=== PATIENT | male | born 1940 | race Caucasian/White ===

== ENCOUNTER 2016-04-18 10:38 | Inpatient (IN) | payer BC, OTHER ==
--- NOTE | ~2016-04-18 | IDS ---
Interim Discharge Summary [facility] [address] [place]. [address] NAME: ART BURRIS : 42 STATUS : ADM IN PAT#: [id number] AGE: 75 ADM/REG DATE : 04/18/16 MR#: [id number] REPORT SERV DATE: 05/09/16 DICTATED BY: BISI CHAVARRIA IV DATE: 05/09/16 REPORT STATUS : Draft TRANSCRIBED BY: MODUgo DATE: 05/09/16 ADMISSION DATE: 04/18/2016 DISCHARGE DATE: Date of the transfer to the intensive care unit is the 05/04/2016. Date of the interim discharge summary is the 05/09/2016. REASONS FOR TRANSFER: 1. Hypotension, requiring vasopressor agents, though currently maintained on midodrine. 2. Cardiomyopathy with an ejection fraction of 20% to 25%. 3. Critical aortic stenosis, status post balloon angioplasty. 4. Shock liver with some improvement, however, with persistently elevated transaminases. 5. Acute on chronic renal failure with a creatinine currently at 3.33 despite positive fluid balance. Now on a Bumex drip. 6. Clinical chronic obstructive pulmonary disease. 7. Severe obstructive sleep apnea. 8. Paroxysmal atrial fibrillation, with marginal rate control. 9. Chronic hypoxemia. CONSULTANTS: [facility] has continued to follow the patient. We reconsulted Nephrology, who is following the patient. New consults were Gastroenterology Service for the shock liver and Palliative Care. PROCEDURES: The patient had a PICC line placed on the 05/04/2016. A hepatic ultrasound was obtained on the 05/05/2016 demonstrating some gallbladder wall thickening with sludge concerning for cholecystitis, however, with perinephric fluid and without a clinical path pattern consistent with cholecystitis though he remains on cefepime because of a slightly elevated procalcitonin level in these findings. The hepatic vein and portal veins were normal, as was the hepatic parenchyma on ultrasound. Repeat echocardiogram was obtained on the 05/05/2016 demonstrating a decrease in the estimated ejection fraction from 45% to 25% with severe low gradient at the aortic stenosis with a slight improvement in the gradient as well as moderate AI. The patient had a right upper extremity ultrasound because of mild swelling on the 05/06/2016 which failed to demonstrate any DVT. CURRENT MEDICATIONS: Include the Bumex drip at 1 mg/hour, Brovana unit dose twice a day, BuSpar 7.5 mg twice a day, Claritin 10 mg daily, Cordarone 200 mg twice a day, iron 300 mg daily, digoxin 0.25 mg times single dose, Lexapro 5 mg daily, Maxipime 1 g b.i.d., MiraLAX one packet daily, level 1 insulin sliding scale, midodrine 10 mg three times a day, Protonix 40 mg at breakfast, Proventil q.4 hours while awake and q.2 hours as needed, Pulmicort 1 mg twice a day, Spiriva one capsule daily, Synthroid 50 mcg daily, Toprol-XL 12.5 mg daily, and vitamin K 5 mg daily. HOSPITAL COURSE: The patient was on the hospitalist service and transferred to the unit on the 05/04/2016 for reports of hypotension. There had been documented episodes of hypotension and the patient was actually had adequate blood pressure on arrival. He did in the first few days develop some transient episodes of hypotension for which he did receive a Interim Discharge Summary [address] [address] NAME: ART BURRIS : 42 STATUS : ADM IN PAT#: [id number] AGE: 75 ADM/REG DATE : 04/18/16 MR#: [id number] REPORT SERV DATE: 05/09/16 DICTATED BY: BISI CHAVARRIA IV DATE: 05/09/16 REPORT STATUS : Draft TRANSCRIBED BY: VALARIE DATE: 05/09/16 short course of Levophed. His midodrine dose was increased to 2.5 to 10 mg which seems to have maintained his blood pressure. He developed a rapid and a marked rise in his transaminases up to almost 12,000 for his AST. The amiodarone was transiently discontinued because of concern about drug effect, however, this appeared to be from shock liver. The ultrasound failed to demonstrate any abnormal parenchymal or flow problems, however, was suspicious for cholecystitis for which he was placed on antibiotics. His clinical picture was not consistent with this though he has remained on cefepime with discontinuation of vancomycin. All cultures have been negative. He developed acute on chronic renal failure with a creatinine up to 3.33 despite a markedly positive fluid balance. He has developed worsening radiograph with volume overload for which we have instituted a Bumex drip. His echocardiogram demonstrated the worsening of the estimated ejection fraction with persistent and AI. He was transiently in a normal sinus rhythm, however, it again returned into atrial fibrillation with the amiodarone and Toprol as tolerated and digoxin for rate control. The patient was placed on bronchial medications for pulmonary emphysema and presumed severe COPD. He is noncompliant with CPAP for his obstructive sleep apnea. Oxygen saturations have been adequate. Despite all of supported efforts, the patient has had overall clinical worsening. We had Palliative Care evaluate the patient, however, the patient has had difficulty deciding on limitations to his care. Family conference occurred on the 05/09/[address] Valdez, myself, and the patient's two brothers and the decision was made that the patient should be a DO NOT RESUSCITATE. We will see how he responds within the next 24 hours. The patient will likely be stable for transfer back to the floor tomorrow. Hospice would be a consideration. HEAVENLY/VALARIE Bisi Chavarria IV, M.D. / [id number] CC: Carmina Boss DO
--- NOTE | ~2016-04-18 | OP ---
Record Of Operation [facility] [address] [place]. [address] NAME: ART MACIAS : 42 STATUS : DIS IN PAT#: [id number] AGE: 75 ADM/REG DATE : 04/18/16 MR#: [id number] REPORT SERV DATE: 05/18/16 DICTATED BY: GREG BARAHONA DATE: 04/29/16 REPORT STATUS : Draft TRANSCRIBED BY: VALARIE DATE: 04/29/16 DATE OF PROCEDURE: 04/29/2016 OPERATION: Balloon aortic valvuloplasty using 22 mm and 24 mm balloon. INDICATION FOR THE PROCEDURE: Mr. Art Macias is a 75-year-old gentleman with class IV heart failure. His ejection fraction has been about 45%. He has severe COPD, is oxygen dependent. He also has history of coronary artery disease, atrial fibrillation, chronic kidney disease, hyperlipidemia, carotid stenosis, and hypothyroidism. Prior cardiac catheterization demonstrated no obstructive coronary artery disease. His mean gradients across the aortic valve have been 15-20 mmHg by catheterization and by echocardiogram. He was diagnosed with a low gradient severe aortic stenosis. He has remained in class IV heart failure despite aggressive diuresis, the BNP greater than 5000. The plan is to proceed with balloon aortic valvuloplasty to improve the aortic valve area, decrease the gradient and hopefully address his symptoms. The valve team felt if his symptoms improved, we would then consider transcatheter aortic valve replacement. POSTPROCEDURE DIAGNOSIS: Successful balloon aortic valvuloplasty. OPERATORS: 1. Greg Barahoan M.D. 2. Dr. Noe. OPERATIVE TECHNIQUE: The patient was prepped and draped in the usual sterile fashion. He received propofol, MAC anesthesia. He was not intubated. He did not have a right heart catheter, he did not have an A-line. The right and left groins were anesthetized with lidocaine 1% 12 mL. Access to the right femoral artery was easily obtained using a micropuncture technique, angiogram demonstrated access in the common femoral artery. Two ProGlide sutures were placed at the 10 o'clock and 2 o'clock positions. A Cook 12-Polish sheath was placed in the right femoral artery. Access to the left femoral vein was easily obtained, 6-Polish sheath was placed. The pacemaker was placed through that left femoral venous sheath to allow rapid ventricular pacing. He received heparin IV, the activating clotting time was therapeutic. He received 10,000 units of heparin, he weighs 63 kg. We crossed the aortic valve without difficulty using AL1 diagnostic catheter and a straight wire. We then changed out that AL1 for a double lumen, Hector catheter. Simultaneous pressures were obtained between the left ventricle and the ascending aorta. There was a pressure gradient of 5 mmHg or less with this Hector catheter. However, his chest wall echo Record Of [address] [place]. [address] NAME: ART MACIAS : 42 STATUS : DIS IN PAT#: [id number] AGE: 75 ADM/REG DATE : 04/18/16 MR#: [id number] REPORT SERV DATE: 05/18/16 DICTATED BY: GREG BARAHONA DATE: 04/29/16 REPORT STATUS : Draft TRANSCRIBED BY: VALARIE DATE: 04/29/16 demonstrated a velocity of approximately 3 m/sec. We reviewed these findings with Dr. Espinoza who felt we should proceed with balloon aortic valvuloplasty. Given his refractory symptoms, the severe stenosis by 2-dimensional echocardiogram with minimal motion as well as the gradient across the aortic valve by echocardiogram and prior catheterization. In short, the pressure gradient using the Bern catheter were unreliable. We then proceeded with balloon aortic valvuloplasty using a 22 mm Z-Med balloon. With rapid ventricular pacing, we dilated the aortic valve eight times. We performed balloon aortic valvoplasty eight times because the gradient did not improve significantly. I was reluctant to use a large balloon initially to minimize the risk of aortic insufficiency. Each inflation was not captured by because of equipment malfunction. We then performed balloon aortic valvuloplasty using a 24 mm Z-Med balloon. Again with rapid ventricular pacing, we performed balloon aortic valvuloplasty. Subsequent echocardiogram demonstrated velocity had decreased from 3 m/sec to 1.5 m/sec. There was mild aortic insufficiency, unchanged from the images obtained prior to that balloon aortic valvuloplasty. My plan was to proceed with removing the balloon through this Cook sheath and then repeat the pressure gradients. However, the sheath kinked by withdrawing the balloon through the sheath. I thus removed the entire balloon and sheath from the right femoral artery. The ProGlide sutures were tightened. A third ProGlide device was placed. There was no bleeding at all after suturing with the ProGlide devices. The pacemaker was removed. The heart rate was unchanged postprocedure, he has atrial fibrillation ventricular response about 100. I reviewed his echocardiogram images with Dr. Abernathy of Anesthesia, Dr. Noe, and Dr. Espinoza. The gradient improved, the valve motion improved by 2-dimensional echocardiogram and the AI was unchanged of mild. PLAN: The patient will be treated with resumption of his anticoagulants, with aspirin. Diuretics will be continued. We will consider transcatheter aortic valve replacement in the future depending upon his clinical course. ACOSTA/VALARIE Greg Barahona M.D. / [id number] Record Of [address] [address] NAME: ART MACIAS : 42 STATUS : DIS IN PAT#: [id number] AGE: 75 ADM/REG DATE : 04/18/16 MR#: [id number] REPORT SERV DATE: 05/18/16 DICTATED BY: GREG BARAHONA DATE: 04/29/16 REPORT STATUS : Draft TRANSCRIBED BY: VALARIE DATE: 04/29/16 CC: Carmina Boss DO
--- NOTE | ~2016-04-18 | CN ---
Consultation Report [facility] [address] [place]. [address] NAME: ART MACIAS : 42 STATUS : ADM IN [facility]#: [id number] AGE: 75 ADM/REG DATE : 04/18/16 MR#: [id number] REPORT SERV DATE: 05/04/16 DICTATED BY: BISI CHAVARRIA IV DATE: 05/04/16 REPORT STATUS : Draft TRANSCRIBED BY: MODL DATE: 05/04/16 CRITICAL CARE CONSULT AND TRANSFER SERVICES DATE OF CONSULTATION: 05/04/2016 TIME SEEN: 1400 to 1500 hours. REFERRING PHYSICIAN: Dr. Phillips. REASON FOR REQUEST: Reported hypotension, acute kidney injury, and acidemia. HISTORY OF PRESENT ILLNESS: History was obtained from the patient and the records. Mr. Macias is a 75-year-old male with a history of severe obstructive sleep apnea, noncompliant with BiPAP, clinical COPD with emphysema on CT scan, cardiomyopathy, ejection fraction 45%, severe aortic stenosis, status post angioplasty, carotid stenosis, chronic kidney disease, chronic atrial fibrillation, elevated cholesterol, hypotension, chronic hypoxemia, who is transferred to the ICU with reported hypotension and increased shortness of breath. The patient was admitted on the 18 of April with increased shortness of breath, felt to be secondary to both his cardiac disease, as well as a COPD exacerbation. He was treated for the latter with Cardiology continuing to follow the patient. He underwent both echocardiogram and catheterization, which demonstrated critical aortic stenosis. He eventually underwent angioplasty on Tuesday with reported improvement in the gradient across the aortic valve with some improvement in symptoms. Over the weekend, he has had transient episodes of dyspnea, which were documented as being secondary to anxiety. He has significant emphysema on CT scan, though I find no pulmonary function studies. He is on bronchodilator medications and chronic supplemental oxygen. Today, he reportedly had acute onset of shortness of breath not associated with any clear precipitant. Labs also demonstrated some worsening of the renal insufficiency with elevated potassium and a drop in the bicarbonate. The patient was reportedly hypotensive, though this is not recorded on vital signs, for which he was moved to the intensive care unit. Currently, the patient is in no distress. His blood pressure is adequate. He states that his shortness of breath was improved with a nebulizer treatment. The patient reportedly has a very limited exercise tolerance at home of less than 50 feet. He is on 3 L supplemental oxygen 24/7. He was diagnosed with severe obstructive sleep apnea with an AHI greater than 40, which was adequately treated with BiPAP; however, he was previously noncompliant with CPAP therapy. PULMONARY HISTORY: Remarkable for no history of childhood asthma. He does carry the diagnosis of adult COPD with emphysema on CT scan. He has had pneumonia in the past. He is a 21-dfbs-wdpa smoker, who quit by his report, three years ago. 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 He is up-to-date on the flu, though not the Prevnar-13 vaccination. Consultation Report [facility] [address] [place]. [address] NAME: ART MACIAS : 42 STATUS : ADM IN [facility]#: [id number] AGE: 75 ADM/REG DATE : 04/18/16 MR#: [id number] REPORT SERV DATE: 05/04/16 DICTATED BY: BISI CHAVARRIA IV DATE: 05/04/16 REPORT STATUS : Draft TRANSCRIBED BY: VALARIE DATE: 05/04/16 PAST MEDICAL HISTORY: 1. Severe obstructive sleep apnea. 2. Clinical COPD. 3. Cardiomyopathy with ejection fraction 45%. 4. Severe aortic stenosis status post angioplasty. 5. Carotid stenosis. 6. Chronic kidney disease. 7. Chronic atrial fibrillation. 8. Elevated cholesterol. 9. Hypotension. 10.Chronic hypoxemia. SURGERIES: He has had no major previous surgeries listed, however, the patient did have the recent angioplasty. ALLERGIES: LISTED ARE CODEINE AND PENICILLIN, WHICH THE PATIENT REPORTS A RASH. CURRENT MEDICATIONS: BuSpar 7.5 mg twice a day, Claritin 10 mg daily, Dulera two puffs twice a day, DuoNeb every four hours, Eliquis 5 mg twice a day, iron 300 mg daily, Flonase two sprays each nostril daily, Levaquin 750 mg daily, Flagyl 500 mg twice a day, vancomycin per pharmacy, Lexapro 5 mg daily, MiraLAX daily, level 1 insulin sliding scale, ProAmatine 2.5 mg three times a day, Protonix 40 mg daily, Synthroid 50 mcg daily, and Toprol-XL 12.5 mg daily. SOCIAL HISTORY: Remarkable for the previous tobacco use as noted above. The patient denies alcohol or illicit drug use. He is and has two children. FAMILY HISTORY: Remarkable for a sister and mother with coronary artery disease. Father with alcoholic cirrhosis. REVIEW OF SYSTEMS: Fourteen-systems reviewed. Pertinent positives as noted above. PHYSICAL EXAMINATION: GENERAL: This is a chronically ill-appearing elderly male, in no current distress. He is alert, awake, and oriented. VITAL SIGNS: Temperature is 97.3, respiratory rate is 28, saturations are 100% on 3 L. Blood pressure 104/56 and pulse is 73. HEENT: Normocephalic, atraumatic. Extraocular movements are intact. Pupils react to light. Sclerae and conjunctivae normal. He has temporal wasting. He has nasal cannula in place. He has had a Mallampati 3 airway with an elongated soft palate and narrowing of the posterior pharyngeal space. NECK: Without any palpable lymphadenopathy or thyromegaly. CHEST: The patient has inspiratory and expiratory rhonchi with a prolonged expiratory phase. Rhonchi improved with cough. No true wheezes are noted. There are some dry Consultation Report [address] [place]. [address] NAME: ART MACIAS : 42 STATUS : ADM IN [facility]#: [id number] AGE: 75 ADM/REG DATE : 04/18/16 MR#: [id number] REPORT SERV DATE: 05/04/16 DICTATED BY: BISI CHAVARRIA IV DATE: 05/04/16 REPORT STATUS : Draft TRANSCRIBED BY: VALARIE DATE: 05/04/16 inspiratory crackles. CARDIOVASCULAR: He has 1+ carotid upstrokes with a right carotid bruit versus radiated murmur. He currently has a seemingly regular S1 with a decreased S2 and a 3/6 systolic murmur. Peripheral pulses are diminished. ABDOMEN: Scaphoid, soft. There are hypoactive bowel sounds. There is no palpable hepatosplenomegaly or mass. EXTREMITIES: Demonstrate no cyanosis, clubbing, edema, or palpable cords. He has muscle wasting. NEUROLOGIC: He is able to move all extremities. Strength is 5-/5 and symmetric and sensation is intact to light touch. LABORATORY STUDIES: Chest x-ray yesterday demonstrated cardiomegaly with no pulmonary infiltrates. CBC: Hemoglobin 13.1, hematocrit 40.9, platelet count 122,000, and white blood cell count is 14.9. Sodium is 135, potassium 5.9, chloride 97, bicarbonate 17, BUN 52, creatinine 1.66, glucose of 97. ALT is 315, AST is 646. Negative liver panel and hepatitis panel. Blood gas 7.46, pCO2 of 29, pO2 of 96. Urinalysis is remarkable for 32 hyaline casts. ASSESSMENT AND PLAN: 1. Respiratory. The patient has significant emphysematous changes on the CT scan during this hospitalization. There are no pulmonary function studies. He will be given albuterol via EzPAP, budesonide, and Brovana. Budesonide will be given 1 mg twice a day with Brovana unit dose twice a day. Spiriva will be given one capsule daily. Acapella valve will be given three times a day to assist with mucus clearance. Oxygen will be titrated to maintain saturation 90% to 94% range. Blood gas obtained now to document, which was performed to look at the patient's pH. 2. Renal. The patient does have evidence for acute kidney injury. Question cholesterol emboli from his procedure. We will avoid nephrotoxins. Gentle hydration. Kayexalate will be given 15 g now, D50 and insulin were already given. Repeat labs will be done at 1800 hours tomorrow. 3. Infectious Disease. Procalcitonin level will be obtained. Cultures have not yet been sent. I have discontinued broad-spectrum antibiotics since there is no clear evidence for a true infectious process. Prevnar-13 will be given at the time of discharge. 4. Cardiovascular. The patient's rate is controlled. He is currently in a regular rhythm, which does appear to be sinus. Digoxin level will be obtained tomorrow. We will continue the beta-jma as tolerated. He will remain on the midodrine for the chronic hypotension. 5. Endocrinologic. Cortisol level will be obtained with hypertension. Synthroid will be continued with high thyroid stimulating hormone. 6. Hematologic. Eliquis will be continued. We will follow the patient's hemoglobin and hematocrit. 7. Neurologic. We will continue the patient's Psych medications. 8. Gastrointestinal, not clear the reason for the elevated liver function tests, though may be shock liver from his procedure. We will repeat tomorrow. Consultation Report [facility] [address] [place]. [address] NAME: ART MACIAS : 42 STATUS : ADM IN PAT#: [id number] AGE: 75 ADM/REG DATE : 04/18/16 MR#: [id number] REPORT SERV DATE: 05/04/16 DICTATED BY: BISI CHAVARRIA IV DATE: 05/04/16 REPORT STATUS : Draft TRANSCRIBED BY: VALARIE DATE: 05/04/16 Thank you for consulting us. We will follow the patient and the patient will be transitioned to the sound assistant service. Critical care time is 60 minutes. HEAVENLY/VALARIE Bisi Chavarria IV, M.D. / [id number] CC: Carmina Boss,
--- NOTE | ~2016-04-18 | HP ---
History And Physical [id number] [place]. [address] NAME: ART BURRIS : 42 STATUS : ADM IN [facility]#: [id number] AGE: 75 ADM/REG DATE : 04/18/16 MR#: [id number] REPORT SERV DATE: 04/18/16 DICTATED BY: ISAÍAS PAYTON DATE: 04/18/16 REPORT STATUS : Draft TRANSCRIBED BY: MODL DATE: 04/18/16 DATE OF ADMISSION: 04/18/2016 CHIEF COMPLAINT: Shortness of breath. HISTORY OF PRESENT ILLNESS: The patient is a 75-year-old male with a history of coronary artery disease, heart failure with reduced EF, AFib, and GERD, who presented to the hospital with a complaint of shortness of breath. The patient states that over the past one to two weeks, he had been feeling unwell. He states that he has seen his forensic manager recently and was instructed to get some lab work done. However, he kept pushing it trying to stating that he was planning to get it done this coming 04/19/2016. The patient states that last night his shortness of breath severely worsened, states that he was unable to lie in bed and had to sleep in a chair. Upon awakening this morning given his worsening symptoms, he decided to present to the emergency room. Upon presentation to the emergency room, preliminary workup noted a BNP of greater than 3000. The patient was therefore admitted under Hospitalist Service for further management. At the time of my evaluation, the patient corroborated the above story. Also additional history obtained from the nurse and ED physician. Upon presentation to the emergency, the patient had a normal heart rate as noted in the EKG when the patient first got it. However given his volume overload, the patient was given a dose of Lasix and upon him sitting up to eat high he will use he went into atrial fibrillation with RVR. The patient remained in the emergency room and was monitored with subsequent improvement. Also his blood pressure was noted to drop. The patient is currently normotensive with a blood pressure of 94 over low 60s at the time of my evaluation. The patient said he did have a chest pain accompanying his symptoms; however, at the time of my evaluation, he denied any chest pain. He denied any lightheadedness or dizziness. No nausea. No vomiting. He then reported recent sick contact stating that his brother has been under the weather. However, no headaches, no lightheadedness, no dizziness, and no syncopal episodes. REVIEW OF SYSTEMS: As noted in the HPI. All other systems were negative. PAST MEDICAL HISTORY: As noted in the HPI including heart failure with reduced EF, atrial fibrillation, chronic kidney disease stage 3, gastroesophageal reflux disease, hyperlipidemia, and COPD. PAST SURGICAL HISTORY: Negative. FAMILY HISTORY: Significant for coronary artery disease. ALLERGIES: THE PATIENT IS ALLERGIC TO PENICILLIN AND CODEINE. SOCIAL HISTORY: The patient reports significant smoking history. He states that he quit about three years ago. He denies any illicit or alcohol drug use. PHYSICAL EXAMINATION: History And Physical [address] [address] NAME: ART BURRIS : 42 STATUS : ADM IN [facility]#: [id number] AGE: 75 ADM/REG DATE : 04/18/16 MR#: [id number] REPORT SERV DATE: 04/18/16 DICTATED BY: ISAÍAS PAYTON DATE: 04/18/16 REPORT STATUS : Draft TRANSCRIBED BY: VALARIE DATE: 04/18/16 GENERAL: The patient is sitting in bed, appears stated age, dry oral mucosa, in no acute distress, wearing a nasal cannula. HEENT: Normocephalic, atraumatic. Extraocular motors intact. Oral mucosa is dry. NECK: Trachea midline and symmetric. No thyromegaly noted. CHEST: Nontender to palpation. CARDIOVASCULAR: Irregularly irregular rate and rhythm. I did not appreciate any murmurs. LUNGS: Decreased breath sounds globally with positive rales. ABDOMEN: Positive bowel sounds. Flat, soft, nontender, and nondistended. EXTREMITIES: 2+ pitting edema noted. NEUROLOGIC: Alert and oriented x3. No focal deficits appreciated. LABORATORY DATA: WBC 5.2, hemoglobin 12.5, hematocrit 39.4, platelets 184. Sodium 138, potassium is 4.6, chloride 104, bicarb 24, BUN 29, creatinine 1.35, and glucose 115. BNP 3100. IMAGING: Chest radiograph PA and lateral, impression: Continued small bilateral pleural effusions with mild bibasilar atelectasis. ASSESSMENT AND PLAN: 1. Congestive heart failure with reduced ejection fraction, decompensated. The patient with evidence of volume overload. I Will start Lasix 40 mg IV q.8 hours. I will hold Coreg and other antihypertensive secondary to low blood pressure. Consult Cardiology given his decompensated heart failure in the setting of atrial fibrillation with rapid ventricular response. 2. Atrial fibrillation with rapid ventricular response, persistent, currently on anticoagulation and rate controlling agents. I will continue home medications. Consult Cardiology. 3. Coronary artery disease. The patient with an ASCVD score of 14.7, high intensity statin indicated. We will discontinue pravastatin, start atorvastatin 40 mg p.o. daily. 4. Acute kidney injury. Creatinine currently 1.35, baseline is 1.02 to 1.1. Plan: We will avoid nephrotoxins. We will hold IV fluids given the patient's hypervolemic status. We will continue to monitor at this point. 5. Chronic kidney disease, stage 3. The patient will remain full code. 6. Deep venous thrombosis prophylaxis with subcu heparin. CAITLIN/MODL Isaías Payton MD / [id number] CC: Isaías Payton MD
--- NOTE | ~2016-04-18 | IDS ---
Interim Discharge Summary [facility] [address] [place]. [address] NAME: ART BURRIS : 42 STATUS : ADM IN [facility]#: [id number] AGE: 75 ADM/REG DATE : 04/18/16 MR#: [id number] REPORT SERV DATE: 05/03/16 DICTATED BY: CHERIE GOODWIN DATE: 05/03/16 REPORT STATUS : Draft TRANSCRIBED BY: VALARIE DATE: 05/03/16 ADMISSION DATE: 04/18/2016 DISCHARGE DATE: DIAGNOSES: 1. Systolic/ischemic cardiomyopathy exacerbation. 2. Severe aortic stenoses, status post balloon aortic valvuloplasty by Dr. Khoa Barahona, 04/29/2016. 3. Hypotension. 4. Chronic obstructive pulmonary disease exacerbation, resolved. 5. Atrial fibrillation with rapid ventricular response. 6. Hypothyroidism. CONSULTANTS: 1. Cardiology with [facility], Dr. Khoa Barahona and Dr. Espinoza. 2. Hospitalist, Dr. Gay and Dr. Francesca Phillips. HOSPITAL COURSE: Please see H and P by Dr. Gay and interim summary from Dr. Rosana Phillips for further details. A 75 years old male with a past medical history of systolic congestive heart failure and atrial fibrillation presented with shortness of breath, found to be in congestive heart failure exacerbation as well as COPD exacerbation. The patient was seen by Cardiology Service. The patient had an echocardiogram that revealed ejection fraction around 45% and severe aortic stenoses. The patient is now status post cardiac cath. Please refer to interim summary per Dr. Francesca Phillips for further instructions. The patient was taken off Entresto for worsening renal function by Nephrology. The patient was taken into the labor trainer for balloon aortic valvuloplasty, for which the patient tolerated well. He was initiated on midodrine by Dr. Espinoza solid waste landfill technician, for persistent hypotension secondary to cardiovascular disease most likely. The patient required continued encouragement for participation with Physical Therapy for debility. His respiratory status improved during this hospital course and plan is for discharge soon. The patient had a complaint today of a brownish-productive cough. Therefore, a chest x-ray is to be ordered and the patient will empirically be on doxycycline. We will follow up with chest x-ray. Expect discharge soon. The patient will be staying with his brother in [place], at discharge. However, Case Management has not been able to find a home health for that location due to the [place] being a [place]. The patient is made aware of this, but still recommends to be with someone at discharge. He is already set up for cardiac rehab outpatient. The patient be followed by Dr. Francesca Phillips once again, who will attend to this patient's care, 05/04/2016. [facility]/VALARIE Cherie Payne Interim Discharge Summary [address] [address] NAME: ART BURRIS : 42 STATUS : ADM IN [facility]#: [id number] AGE: 75 ADM/REG DATE : 04/18/16 MR#: [id number] REPORT SERV DATE: 05/03/16 DICTATED BY: CHERIE GOODWIN DATE: 05/03/16 REPORT STATUS : Draft TRANSCRIBED BY: VALARIE DATE: 05/03/16 Carmina Goodwin / [id number] CC: Carmina Boss DO
--- NOTE | ~2016-04-18 | CN ---
Consultation Report [facility] [address] [facility] [place]. [address] NAME: ART MACIAS : 42 STATUS : ADM IN PAT#: [id number] AGE: 75 ADM/REG DATE : 04/18/16 MR#: [id number] REPORT SERV DATE: 04/21/16 DICTATED BY: DATE: REPORT STATUS : Draft TRANSCRIBED BY: MODUgo DATE: 04/21/16 CONSULTATION REPORT DATE OF CONSULTATION: REASON FOR CONSULTATION: CKD. HISTORY OF PRESENT ILLNESS: Mr. Macias is a 75-year-old white male with multiple medical problems including CHF, looks as though he has a baseline CKD with creatinine of 1.3. He has COPD, oxygen dependent. He is in the hospital at this time with shortness of breath, had AFib with RVR, acute exacerbation of congestive heart failure. Since being in the hospital, he has been diuresed. His creatinine has gone from 1.3 to 1.6, and we have been asked to see him in consultation. He has a Ramos in place. Along with diuresis, he has also had low blood pressures in the 80s and his Entresto has been held every day. He has an aortic valve area of 0.6 cm2 and EF of 45%. His shortness of breath at this time is much improved. Denies any dysuria or hematuria prior to presentation. No fevers or chills. He does have occasional chest pain. PAST MEDICAL HISTORY: CHF; CKD; atrial fibrillation; reflux; osteoarthritis; BPH; hyperlipidemia; COPD, oxygen dependent; and carotid stenosis, followed by Dr. Lawrence. ALLERGIES: PENICILLIN AND CODEINE. FAMILY MEDICAL HISTORY: No end-stage renal disease. SOCIAL HISTORY: He lives with his brother. No tobacco, quit three years ago. No alcohol or illicit drug use. MEDICATIONS: At the time of consultation, Eliquis, Lipitor, Bumex was stopped earlier today, BuSpar, Coreg, Lanoxin, Lexapro, Pepcid was stopped earlier today, Flonase, Humibid, NovoLog, Levaquin, Synthroid, Claritin, Solu-Medrol, Protonix, and potassium. Entresto is listed, however, he has not had a dose since he has been here. REVIEW OF SYSTEMS: A 12-point review of systems was obtained and negative with the exception of that in the HPI. PHYSICAL EXAMINATION: VITAL SIGNS: Temp 97.3, blood pressure 119/67, pulse 111, respiratory rate 20, and O2 saturation is 100%. GENERAL: This is a chronically ill-appearing white male, thin, alert and oriented x3, in no acute distress, answers questions appropriately. HEENT: Normocephalic and atraumatic. Conjunctivae are clear. Sclerae are anicteric. Oral mucosa is moist. Consultation Report [address] [place]. [address] NAME: ART MACIAS : 42 STATUS : ADM IN PAT#: [id number] AGE: 75 ADM/REG DATE : 04/18/16 MR#: [id number] REPORT SERV DATE: 04/21/16 DICTATED BY: DATE: REPORT STATUS : Draft TRANSCRIBED BY: VALARIE DATE: 04/21/16 NECK: Supple. He does have a right carotid bruit. LUNGS: Respirations are even and unlabored. Breath sounds are clear to auscultation. HEART: Rate is regular. He does have a 4/6 systolic ejection murmur. No rub or gallop. ABDOMEN: Soft and nontender. Bowel sounds are active. No masses. No hepatosplenomegaly. No bruits. No CVA tenderness. BACK: Within normal limits. EXTREMITIES: To the right lower extremity, he has 2+ edema. To the left, he has trace. Ramos intact with concentrated urine. NEUROLOGIC: No focal deficits. Mood and affect, pleasant and appropriate. SKIN: Warm, dry, and intact. No unusual rashes or skin lesions. PERTINENT LABS AND X-RAYS: Chest x-ray today was negative. BNP is still greater than 5000. Sodium 140, potassium 5, chloride 104, CO2 of 24, BUN 49, creatinine 1.6, calcium 8.8, and magnesium 2.4. WBCs 9.6, H and H 11 and 36, and platelets 132,000. IMPRESSION: 1. Chronic kidney disease, stage III. 2. Hypotension. 3. Aortic stenosis. 4. Acute exacerbation of congestive heart failure. 5. Atrial fibrillation. 6. Chronic obstructive pulmonary disease. PLAN/RECOMMENDATIONS: Creatinine is up in the setting of diuresis, which was needed. He has also had low blood pressure. Shortness of breath is symptomatically much better. There are plans for possible heart catheterization tomorrow and discuss with the patient the risk for contrast-induced nephropathy. He has already had his Entresto held. Diuretic is also on hold today. I do not think he would tolerate any IV fluid hydration prior to catheterization, so we will not order such. Follow I's and O's, labs, check urine studies and follow along with you. Thank you for the consultation. SIMON/VALARIE ROCKY Paez / [id number] CC: Carmina Arceo,
--- NOTE | ~2016-04-18 | IDS ---
Interim Discharge Summary [facility] [address] [facility] [place]. [address] NAME: ART MACIAS : 42 STATUS : ADM IN [facility]#: [id number] AGE: 75 ADM/REG DATE : 04/18/16 MR#: [id number] REPORT SERV DATE: 04/26/16 DICTATED BY: FRANCESCA AREVALO DATE: 04/25/16 REPORT STATUS : Draft TRANSCRIBED BY: MODL DATE: 04/25/16 ADMISSION DATE: 04/18/2016 DISCHARGE DATE: CURRENT INTERIM DISCHARGE SUMMARY: Includes: 1. Acute on chronic congestive heart failure with history of nonischemic cardiomyopathy with an ejection fraction around 45% with global hypokinesis. 2. Severe aortic stenosis with recent cardiac catheterization showing an aortic valve area of 0.81. 3. Chronic obstructive pulmonary disease exacerbation with history of an oxygen-dependent chronic obstructive pulmonary disease and chronic respiratory failure. 4. Acute on chronic kidney disease, stable. 5. Atrial fibrillation with rapid ventricular response, on anticoagulation. 6. Gastroesophageal reflux disease. 7. Hypothyroidism. 8. Hyperlipidemia. CONSULTANTS ON THE CASE: Dr. Espinoza, Cardiology, as well as Dr. Harris, Renal. PROCEDURES DONE DURING THIS HOSPITALIZATION: Include a cardiac catheterization that has been performed by Cardiology on 04/22/2016 showing that the patient does have nonischemic cardiomyopathy with an ejection fraction around 45%, but also very severe aortic stenosis with a valve area of 0.81. OTHER TESTS DONE DURING THIS HOSPITALIZATION: Include a 2D echo on 04/19/2016 showing an ejection fraction of about 45%. CT of the chest without contrast has shown mild interstitial edema and pleural effusion, mild COPD, atelectasis of the lung bases, but no other abnormalities that could be appreciated. Also, the patient has been ruled out for SC. The patient also has a TSH of 10.9, also creatinine of 1.34 with a BUN of 39. His BNP though remained more than 5000. His blood cultures have remained negative at four days. HOSPITAL COURSE: This is a very pleasant 75 years old gentleman, who has been admitted by Dr. Franklin Gay on 04/18/2016 with shortness of breath. It is very important to note that the patient has a history of aortic stenosis, coronary artery disease. Until recently, he has been seen by Dr. Segovia. He has a history of COPD with chronic respiratory failure as well as history of aortic stenosis. Again, the patient has been admitted with acute on chronic congestive heart failure likely initially secondary to atrial fibrillation that has been uncontrolled and mild COPD exacerbation. The patient has been seen in consult due to his dyspnea, volume overload, and CHF by Dr. Espinoza. Initially, echo showed that the patient has an ejection fraction of around 45% and severe aortic stenosis. After that, the patient has been scheduled for cardiac catheterization, which showed that he does have a pulmonary pressure of 54/38 with severe aortic stenosis with 0.81 aortic valve area and likely heart failure status will be assessed like [place] [employer] class III. The patient has been seen in consult by Nephrology due to the fact that he developed some acute on chronic kidney disease with raising of his creatinine especially after placed on Entresto that the patient did not tolerate secondary to his renal failure and development of Interim Discharge Summary [address] [place]. [address] NAME: ART MACIAS : 44 STATUS : ADM IN [facility]#: [id number] AGE: 75 ADM/REG DATE : 04/18/16 MR#: [id number] REPORT SERV DATE: 04/26/16 DICTATED BY: FRANCESCA AREVALO DATE: 04/25/16 REPORT STATUS : Draft TRANSCRIBED BY: VALARIE DATE: 04/25/16 hyperkalemia. The patient has been started on steroids on admission that have been tapered and changed to oral steroids and currently, the patient still has some congestive heart failure, for which Cardiology is treating him with IV diuretics. Obviously, there is a consideration for this patient to TAVR, but the plan initially was to optimize his medications. MEDICATIONS: Currently, medications at interim discharge summary include Eliquis, Lipitor, Bumex, BuSpar, Coreg, Lanoxin, Lexapro, iron sulfate, Flonase, NovoLog sliding scale, Synthroid, Claritin, Protonix, MiraLAX, and prednisone, as well as Proventil, DuoNebs, and Dulera. My partner is going to start to see Mr. Art Macias from 04/27/2016. CF/MODL Francesca Arevalo M.D. / [id number] CC: Carmina Arceo DO
--- NOTE | ~2016-04-18 | CN ---
Consultation Report [facility] [address] [place]. [address] NAME: ART MACIAS : 44 STATUS : ADM IN [facility]#: [id number] AGE: 75 ADM/REG DATE : 04/18/16 MR#: [id number] REPORT SERV DATE: 04/19/16 DICTATED BY: TETO KAISER DATE: 04/19/16 REPORT STATUS : Draft TRANSCRIBED BY: MODL DATE: 04/19/16 CARDIOLOGY CONSULTATION DATE OF CONSULTATION: [facility] PHYSICIAN: Teto Kaiser M.D., Ph.D, F.A.C.C. CHIEF COMPLAINT: Shortness of breath. HISTORY OF PRESENT ILLNESS: Mr. Macias is a 75-year-old man with a history of aortic stenosis and chronic coronary artery disease, who was previously followed by Dr. Segovia until just recently. The patient has a history of mixed cardiomyopathy and COPD. I had initially seen him for evaluation of aortic stenosis, which was felt to be moderate. He presents to the hospital with progressive dyspnea on exertion, also orthopnea. He has some increased lower extremity edema. He reports being careful about his salt intake, but has not cared for all about his water or fluid intake. He reports taking all of his medications, although he is a little unclear about exactly which medicines those are. He has had no palpitations or syncope. He has had no discrete chest pain or anginal type symptoms. REVIEW OF SYSTEMS: As per the history of present illness. 10 other systems are negative. No fevers or chills. Cough productive of minimal sputum. FAMILY HISTORY: Positive for heart disease. SOCIAL HISTORY: No current tobacco. ALLERGIES: PENICILLIN AND CODEINE. HOME MEDICATIONS: Albuterol, Xanax 0.25 daily, Eliquis 5 p.o. b.i.d., Bumex 1 daily, BuSpar, carvedilol 3.125 mg p.o. b.i.d., Zyrtec 10 daily, cimetidine 400 b.i.d., digoxin 0.125 daily, Lexapro, Nexium, ferrous sulfate, Afrin nasal spray, potassium 10 daily, pravastatin 10 daily, Entresto 1 tab p.o. b.i.d. PHYSICAL EXAMINATION: VITAL SIGNS: Heart rate 81, blood pressure 88/53. GENERAL: This is a pleasant white male, in no apparent distress. HEENT: Conjunctivae are anicteric, no xanthelasma, lips without cyanosis. NECK: Supple, normal JVP, carotids +2 without bruit. LUNGS: Clear to auscultation bilaterally, no wheezes, rales or rhonchi. CARDIOVASCULAR: Regular rate and rhythm. Normal S1 and S2 without S3. No murmur or rub. PMI is nondisplaced. ABDOMEN: Soft, nontender, nondistended, with normal bowel sounds. No hepatomegaly. Consultation Report [facility] [address] [facility] [place]. [address] NAME: ART MACIAS : 44 STATUS : ADM IN [facility]#: [id number] AGE: 75 ADM/REG DATE : 04/18/16 MR#: [id number] REPORT SERV DATE: 04/19/16 DICTATED BY: TETO KAISER DATE: 04/19/16 REPORT STATUS : Draft TRANSCRIBED BY: MODL DATE: 04/19/16 EXTREMITIES: No clubbing, cyanosis or edema. NEURO/PSYCH: Alert and oriented to person, place and time. No obvious neurologic deficits. Mood and affect normal. IMPRESSION: 1. Paroxysmal atrial fibrillation, previous with rapid ventricular response, now converted to sinus rhythm. 2. [id number]-[id number] systolic congestive heart failure secondary to atrial fibrillation. 3. Chronic obstructive pulmonary disease. 4. Coronary artery disease with cardiomyopathy. 5. Moderate aortic stenosis. 6. Possible hypothyroidism with increased TSH. RECOMMENDATIONS: Mr. Macias presents with dyspnea and volume overload. He had transient atrial fibrillation in the emergency room, I think which is complicating factor for him. His blood pressure also is on the low side, but I think it chronically runs on the low side. All of this is complicated by underlying lung disease. I agree with diuresis and optimizing his medicines. I think we should check an echo. We may need to consider doing an arteriogram. I am concerned about the previous reports of focal wall motion abnormalities on his echocardiogram, although he has had no anginal type symptoms. His BNP is markedly elevated. We will see if we can get him better and get a better evaluation of where we are down the road. He needs aggressive heart failure education as well. Thank you for this consultation. Please contact me if you have any further questions. WO/MODL Teto Kaiser M.D., Ph.D, F.A.C.C. / [id number] CC: MD Naveed Sanabria DO
--- NOTE | ~2016-04-18 | DS ---
Discharge Summary [facility] [address] [place]. [address] NAME: ART BURRIS : 42 STATUS : ADM IN PAT#: [id number] AGE: 75 ADM/REG DATE : 04/18/16 MR#: [id number] REPORT SERV DATE: 05/17/16 DICTATED BY: KATLYN PEREZ DATE: 05/16/16 REPORT STATUS : Draft TRANSCRIBED BY: MODL DATE: 05/16/16 ADMISSION DATE: 04/18/2016 DISCHARGE DATE: 05/16/2016 PRINCIPAL DIAGNOSES: End-stage systolic congestive heart failure with cardiogenic shock in the setting of severe mitral regurgitation and critical aortic stenosis. SECONDARY DIAGNOSES: Acute kidney injury with oliguria, shock liver, disseminated intravascular coagulation, acute respiratory failure, hyperkalemia, hypoglycemia due to homeostatic failure, critical illness polyneuropathy, critical illness myopathy, shock liver, atrial fibrillation. HISTORY OF PRESENT ILLNESS: Please see Dr. Gay's dictation on 04/18/2016, subsequent interim summaries from 04/26/2016 and 05/03/2016, and from the Critical Care Team on 05/10/2016. SUBSEQUENT HOSPITAL COURSE: The patient actually had been modestly improving with liver function enzymes coming down, a creatinine coming down with improving urinary output on diuretic infusion, oxygenation had been improving and coags have been improving as well. He is participating in physical therapy, eating a little bit; however, p.o. intake by 05/13/2016 began to Peter out again very severely. He ate nothing on 05/12/2016 and was found once again to be encephalopathic. Efforts were made to try to feed him ourselves, he would not eat, with the following morning renal failure had recurred severely along with hyperkalemia and severe hypoglycemia. The patient required bicarbonate and dextrose infusion as well as Kayexalate to be given through NG tube which he did not otherwise tolerate. While the patient survived that particular critical moment, his absence of ability to maintain a forward progress in the setting of his cardiac disease and a recurrence of severe renal failure and homeostatic failure made further efforts absolutely futile. The patient at the family's request stayed in the hospital. His was anticipated on the evening of 05/16/2016, while we will continue to see him if he continues on; however, at the time of this dictation he was only having agonal breathing and was expected very soon. Nurse pronouncement permission was given. VICKIE/VALARIE Katlyn Perez M.D. / [id number] CC: Carmina Iraheta DO
--- NOTE | ~2016-04-18 | CN ---
Consultation Report [facility] [address] [place]. [address] NAME: ART MACIAS : 42 STATUS : ADM IN PAT#: [id number] AGE: 75 ADM/REG DATE : 04/18/16 MR#: [id number] REPORT SERV DATE: 05/05/16 DICTATED BY: SABRINA HOLLOWAY DATE: 05/05/16 REPORT STATUS : Draft TRANSCRIBED BY: VALARIE DATE: 05/05/16 GI CONSULTATION DATE OF CONSULTATION: REASON FOR CONSULTATION: Elevated LFTs. HISTORY OF PRESENT ILLNESS: Mr. Macias is a 75-year-old male patient, who was initially admitted on 04/18 secondary to a chief complaint of shortness of breath. He has a history of coronary artery disease, ischemic cardiomyopathy with heart failure and reduced ejection fraction, atrial fibrillation, GERD. He came in with shortness of breath. BNP was greater than 3000. He was evaluated by Dr. Espinoza and ultimately on 04/30, underwent balloon aortic valvuloplasty with Dr. Barahona. Since that time, he has had issues with hypotension, increased shortness of breath and was transferred to the ICU secondary to the above reason. He had some anxiety issues, and his initial dyspnea over the weekend had been felt secondary to that. His LFTs were checked over the weekend and were significantly elevated from his normal admission. Liver enzymes, he had, his highest, an AST yesterday of 11,851 and ALT was 3517. Today, his ALT is 3575 with an AST of 8769 and a procalcitonin level was 0.63, a total bilirubin of 2, and an alkaline phosphatase of 106. He had a hepatic echo done with normal blood flow. The liver measured 15.8 cm, hepatic echogenicity and was homogeneous and without focal mass or defect. No intra or extrahepatic biliary ductal dilation. Common bile duct was 6 mm. The gallbladder was distended with fluid and containing echogenic sludge, it was also thickened, the gallbladder wall at 6 mm, not had a positive Brown sign. He had a trace amount of perihepatic free fluid, small right pleural effusion. The hepatic veins and portal vein were widely patent with hepatopetal flow in the portal vein. I have discussed the case with Dr. Bhanu Lang of Hepatology. His recommendations are to check a PT/INR and CPK, trend his LFTs, keep his MAP greater than 65, as well as discontinue any offending medications, i.e., statins. Amiodarone per Dr. Chavarria has been discontinued. 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 PAST MEDICAL HISTORY: He has a notable past medical history. Positive for severe obstructive sleep apnea with noncompliance on BiPAP; COPD with emphysema; cardiomyopathy, ejection fraction 45%; severe aortic stenosis, status post balloon angioplasty; carotid stenosis; chronic kidney disease; chronic atrial fibrillation; elevated cholesterol; hypertension; chronic hypoxemia; GERD; hyperlipidemia; COPD. PAST SURGICAL HISTORY: Negative. FAMILY HISTORY: Negative from a GI standpoint. SOCIAL HISTORY: Positive for tobacco, cessation three years ago. Denies alcohol or illicits. Consultation Report [address] [place]. [address] NAME: ART MACIAS : 42 STATUS : ADM IN [facility]#: [id number] AGE: 75 ADM/REG DATE : 04/18/16 MR#: [id number] REPORT SERV DATE: 05/05/16 DICTATED BY: SABRINA HOLLOWAY DATE: 05/05/16 REPORT STATUS : Draft TRANSCRIBED BY: VALARIE DATE: 05/05/16 ALLERGIES: TO PENICILLIN AND CODEINE. HOME MEDICATIONS: ProAir HFA, Proventil, Xanax, Eliquis, Bumex, BuSpar, Coreg, Zyrtec, cimetidine, Digitek, Lexapro, Nexium, ferrous sulfate, Flonase, Afrin, potassium, Pravachol, Entresto, [place] nasal spray, and mucus medication [id number]. REVIEW OF SYSTEMS: A 10-point review of systems obtained with pertinent positives addressed in the history of present illness. PERTINENT LABORATORY DATA: Sodium 136, potassium 4.5, BUN is 76. Creatinine 2.76. White count 13.1, hemoglobin 11.3, hematocrit is 34.4, platelet count of 98. INR of 1.2. BNP presently 969. Total bilirubin 2, alkaline phosphatase 106, ALT 3575, AST 8769. PHYSICAL EXAMINATION: VITAL SIGNS: Temperature 97.5, pulse 75, respirations 21, blood pressure 93/58. It should be noted that his lowest blood pressure by vital sign trend was 71/40 on 05/04. NEURO: Reveals an alert male, resting in bed with no obvious focal deficits. GENERAL: He is cooperative, in no apparent distress. Awake, alert, and oriented x3. HEAD, EARS, EYES, NOSE, AND THROAT: Anicteric. Pupils equal, round, reactive to light and accommodation. Normocephalic and atraumatic. SKIN: Notable for mild jaundice. NECK: No JVD. No palpable nodes. LUNGS: Coarse and diminished with normal respiratory effort exhibited. CARDIOVASCULAR SYSTEM: Irregular rate and rhythm. ABDOMEN: Soft, nondistended, nontender with active bowel sounds. No organomegaly appreciated. Right and left groin with dressings and bruising. ASSESSMENT: 1. Elevated LFTs. This is likely secondary to shock liver or medication related. 2. Ischemic cardiomyopathy with ejection fraction of 45%. 3. Severe aortic stenosis, status post balloon aortic valvuloplasty. 4. Chronic obstructive pulmonary disease exacerbation. 5. Atrial fibrillation with rapid ventricular response, resolved. 6. Questionable cholecystitis on ultrasound. PLAN: 1. Check PT/INR and a CPK to rule out rhabdomyolysis. 2. Keep his MAP greater than 65. 3. No H2 inhibitors. 4. Amiodarone has been discontinued, which could be a culprit. 5. Discontinue any statin drugs if on them. 6. We will trend his LFTs. This was all discussed with Dr. Bhanu Lang. We will follow. Consultation Report [address] [address] NAME: ART MACIAS : 42 STATUS : ADM IN [facility]#: [id number] AGE: 75 ADM/REG DATE : 04/18/16 MR#: [id number] REPORT SERV DATE: 05/05/16 DICTATED BY: SABRINA HOLLOWAY DATE: 05/05/16 REPORT STATUS : Draft TRANSCRIBED BY: MODUgo DATE: 05/05/16 ROSAMARIA/VALARIE ROCKY Mcmahon / [id number] CC: Carmina Boss DO
--- NOTE | ~2016-04-18 | CN ---
Consultation Report [facility] [address] [place]. [address] NAME: ART BURRIS : 42 STATUS : ADM IN PAT#: [id number] AGE: 75 ADM/REG DATE : 04/18/16 MR#: [id number] REPORT SERV DATE: 05/05/16 DICTATED BY: VINAY SCHWARZ DATE: 05/05/16 REPORT STATUS : Draft TRANSCRIBED BY: MODL DATE: 05/05/16 NEPHROLOGY CONSULT DATE OF CONSULTATION: HISTORY OF PRESENT ILLNESS: Mr. Burris is a 75-year-old white male, who was admitted to the hospital with baseline creatinine 1.3 to 1.5. We were consulted initially on 04/21/2016 for pre-cath evaluation as he was needing a cardiac catheterization. Did well with catheterization. We signed off from 04/24 with a creatinine down to 1.2. He had stopped his Entresto. I had stopped his diuretics at that point, but with his cardiac cath revealing severe aortic stenosis, it was decided that he needed balloon aortic valvuloplasty, which was performed on 04/29. Following the procedure, they did diurese him aggressively. His creatinine went from 1.2 to 1.4 over the next two days. Subsequently on 05/03/2016, he was noted to be in atrial fib, rapid ventricular response, and worsening heart failure. Creatinine then was 1.1. Treated with Bumex IV, Vibramycin, was treated for bronchitis he developed, and the next day, his creatinine was 2, went up to 2.2 that afternoon, and 2.5 today. Blood pressure has been low on ProAmatine. Consulted again today for elevated creatinine, after episode of atrial fib, rapid ventricular response on 05/03 that led to hypotension, and I cannot find any nephrotoxic agents given no severe prolonged hypotension. No new medications except Vibramycin, which was given because of the bronchitis. PHYSICAL EXAMINATION: VITAL SIGNS: Today, 98/57, heart rate of 79, respirations 24, temperature 97.5, he is on midodrine. GENERAL: He is alert, no acute distress. Comfortable eating lunch. No edema. No rash. Oriented x3. LUNGS: Clear. CARDIOVASCULAR: Grade 2/6 ejection murmur. ABDOMEN: Nontender. Bowel sounds are present. NEUROLOGICAL: Nonfocal. EXTREMITIES: No edema, no blue toes. Remarkably asymptomatic for his elevated liver enzymes and acute renal failure. LABORATORY DATA: Currently, today his lab work shows sodium 136, potassium 5.0, chloride 100, CO2 22 with a BUN of 72, creatinine 2.5, blood sugar 86, calcium 7.8. Albumin 2.8 with a magnesium 2.3, phosphorus 4.2, elevated liver enzymes on 04/23/2016 they were 52, on 05/04/2016 they were 315, today of 3517 with normal amylase and lipase. Lactic acid is 13, [place] [address], hemoglobin 11, hematocrit 34, platelet count 98,000. Hemoglobin was elevated on 05/04/2016 up to 13, suspect bit volume contracted at that point with diuretics. Blood sugars dropped on 05/04/2016 down to 37, has improved now. Urinalysis on 05/04/2016 also showed normal urine, concentrated, and hyaline cast noted. Consultation Report [address] [place]. [address] NAME: ART BURRIS : 42 STATUS : ADM IN PAT#: [id number] AGE: 75 ADM/REG DATE : 04/18/16 MR#: [id number] REPORT SERV DATE: 05/05/16 DICTATED BY: VINAY SCHWARZ DATE: 05/05/16 REPORT STATUS : Draft TRANSCRIBED BY: VALARIE DATE: 05/05/16 ASSESSMENT: 1. Events of 05/03 with atrial fib, rapid ventricular response, elevated liver enzymes, elevated creatinine, decreased urine output, and prerenal looking urinalysis, all indicate prerenal picture for his acute renal failure. We will push fluids, if his echocardiogram is normal, echocardiogram being done now. 2. Acute kidney injury, prerenal with decreased cardiac output of suspected because of atrial fib, rapid ventricular response on 05/03/2016. 3. Recent balloon aortic valvotomy on 04/29, successful, and uneventful. 4. Hypothyroidism, on replacement. 5. Hepatitis, shock liver, Budd-Chiari, Dopplers normal. Medications versus cholecystitis, ultrasound noted. 6. Anticoagulated with Eliquis. PLAN: Fluids, follow, and we will discuss with Dr. Chavarria. RONN/VALARIE Vinay Schwarz M.D. / [id number] CC: Carmina Boss DO Nathan Mull IV, M.D.
[~2016-04-18 10:38] MED LIST: AFRIN15 NAS; ASAB PO; ATV1 PO; AUG BETAMET0.053 TOP; CARD30 PO; CELEXA20 PO; COMBIVENT INH; COMBIVENT RESPIM4 GM INH; COREG3 PO; DIGITEK0.125 MG PO; ELIQUIS 5 MG TAB5 MG PO; FERROUS SULF325 M1 PO; FLONASE NAS; HUMI PO; HYDROCHLOROT12.5 MG PO; HYTONE2.5 % TOP; KDUR10 PO; KLOR-CON M2020 MEQ PO; L40 PO; LAN125 PO; LOTRIMIN AF12 EX; MAGOX4 PO; MCZ125 PO; MONODOX100 MG PO; MUCUS RELIEF PO; NEXIUM40 PO; NORCO1 TA1 PO; NYQUIL PO; OCEAN NAS; P10 PO; PRAV10 PO; PRIN10 PO; PROAIR HFA INH; PROVENTSOL INH; PULRESP1 INH; SACU1TAB PO; SPIRIVA INH; T PO; TESS PO; ULTRAM50 PO; VITAMIN D31000 UNIT PO; X25 PO; XOPENEX1.25 MG/3 INH; ZYRTEC ALLGY10 MG PO
[2016-04-18 10:52] LABS: BASOPHILS 0.8 %; BASOPHILS ABSOLUTE 0.04 10/3/uL (0.0-0.16); EOSINOPHILS 1.3 %; EOSINOPHILS ABSOLUTE 0.07 10/3/uL (0.0-0.53); HEMOGLOBIN 12.5 g/dL (13.6-17.8); IMMATURE GRANULOCYTES 0.2 %; IMMATURE GRANULOCYTES ABSOLUTE 0.01 10/3/uL (0.0-0.11); LYMPHOCYTES 18.3 %; LYMPHOCYTES ABSOLUTE 0.95 10/3/uL (0.67-4.30); MEAN CORPUS HGB CONC 31.7 g/dL (32.0-36.0); MEAN CORPUSCULAR HEMOGLOB 27.4 pg (26.0-34.0); MEAN CORPUSCULAR VOLUME 86.4 fL (80-100); MEAN PLATELET VOLUME 11.4 fL (9.2-13.0); MONOCYTES 7.3 %; MONOCYTES ABSOLUTE 0.38 10/3/uL (0.21-1.20); NEUTROPHILS 72.1 %; NEUTROPHILS ABSOLUTE 3.75 10/3/uL (2.02-8.40); PLATELET COUNT 184 10/3/uL (150-400); RED CELL COUNT 4.56 10/6/uL (4.7-6.1); WHITE BLOOD CELLS 5.2 10/3/uL (4.5-10.5)
[2016-04-18 10:54] LABS: HEMATOCRIT 39.4 % (40.0-51.0); MANUAL DIFF NO %; RBC DISTRIBUTION WIDTH 16.2 % (12.0-16.0)
[2016-04-18] MEDS ORDERED: BUM1 PO (11:04)
[2016-04-18] MEDS ORDERED: BUSPIRONE7.5 MG PO (11:05)
[2016-04-18 11:08] LABS: A/G RATIO 1.3 (0.7-1.9); ALBUMIN 3.5 G/DL (3.5-5.0); ALKALINE PHOSPHATASE 92 U/L (45-117); BUN (BLOOD UREA NITROGEN) 29 MG/DL (6-23); CALCIUM, SERUM 8.8 MG/DL (8.5-10.4); CHLORIDE, SERUM 104 MMOL/L (96-112); CO2 (CARBON DIOXIDE) 25 MMOL/L (24-34); CREATININE 1.35 MG/DL (0.70-1.30); GFR AFRICAN AMERICAN 60 ML/MIN (>=60); GFR NON AFRICAN AMERICAN 52 ML/MIN (>=60); GLOBULIN 2.7 G/DL (2.5-4.1); GLUCOSE, SERUM 115 MG/DL (60-99); POTASSIUM, SERUM 4.6 MMOL/L (3.5-5.3); SGOT(AST) 43 U/L (5-40); SGPT(ALT) 33 U/L (5-65); SODIUM, SERUM 138 MMOL/L (135-148); TOTAL BILIRUBIN 0.7 MG/DL (0-1.2); TOTAL PROTEIN 6.2 G/DL (6.0-8.5)
[2016-04-18] MEDS ORDERED: X25 PO (11:08)
[2016-04-18] MEDS ORDERED: CIMETIDINE400 MG PO (11:17)
[2016-04-18] MEDS ORDERED: LEXAPRO5 MG PO (11:19)
[2016-04-18 11:31] LABS: ALLENS TEST Pos; CARBOXYHEMOGLOBIN 1.1 % (0-3); INSTRUMENT SERIAL # 8087; METHEMOGLOBIN 0.3 % (0-3); O2 CONTENT 18.2 VOL% (18-24); OPERATOR ID 14335; PCO2 (CO2 TENSION) 31 MMHG (35-45); PO2 (O2 TENSION) 156 MMHG (79-93); SAMPLE Arterial; pH 7.46 (7.37-7.43)
[2016-04-19 06:47] LABS: BASOPHILS 0 %; EOSINOPHILS 0 %; HEMOGLOBIN 10.8 g/dL (13.6-17.8); IMMATURE GRANULOCYTES 0.1 %; IMMATURE GRANULOCYTES ABSOLUTE 0.01 10/3/uL (0.0-0.11); LYMPHOCYTES 6.7 %; LYMPHOCYTES ABSOLUTE 0.49 10/3/uL (0.67-4.30); MEAN CORPUS HGB CONC 32.6 g/dL (32.0-36.0); MEAN CORPUSCULAR HEMOGLOB 27.7 pg (26.0-34.0); MEAN CORPUSCULAR VOLUME 84.9 fL (80-100); MONOCYTES 3.2 %; MONOCYTES ABSOLUTE 0.23 10/3/uL (0.21-1.20); NEUTROPHILS ABSOLUTE 6.53 10/3/uL (2.02-8.40); PLATELET COUNT 144 10/3/uL (150-400); RBC DISTRIBUTION WIDTH 16.1 % (12.0-16.0)
[2016-04-19 06:55] LABS: HEMATOCRIT 33.1 % (40.0-51.0); MANUAL DIFF NO %; WHITE BLOOD CELLS 7.3 10/3/uL (4.5-10.5)
[2016-04-19 06:57] LABS: A/G RATIO 1.2 (0.7-1.9); ALBUMIN 2.9 G/DL (3.5-5.0); CALCIUM, SERUM 8.2 MG/DL (8.5-10.4); CHLORIDE, SERUM 106 MMOL/L (96-112); CO2 (CARBON DIOXIDE) 25 MMOL/L (24-34); CREATININE 1.29 MG/DL (0.70-1.30); GFR AFRICAN AMERICAN 63 ML/MIN (>=60); GFR NON AFRICAN AMERICAN 55 ML/MIN (>=60); GLOBULIN 2.4 G/DL (2.5-4.1); GLUCOSE, SERUM 125 MG/DL (60-99); SGOT(AST) 24 U/L (5-40); SGPT(ALT) 26 U/L (5-65); SODIUM, SERUM 142 MMOL/L (135-148); TOTAL BILIRUBIN 0.7 MG/DL (0-1.2); TOTAL PROTEIN 5.3 G/DL (6.0-8.5)
[2016-04-19 07:00] LABS: ALKALINE PHOSPHATASE 72 U/L (45-117); BUN (BLOOD UREA NITROGEN) 44 MG/DL (6-23); POTASSIUM, SERUM 3.3 MMOL/L (3.5-5.3)
[2016-04-19 10:04] LABS: DIGOXIN 0.5 NG/ML (0.8-2.0)
[2016-04-19 13:25] LABS: POTASSIUM, SERUM 4.1 MMOL/L (3.5-5.3)
[2016-04-20 15:23] LABS: BASOPHILS 0 %; EOSINOPHILS 0 %; HEMATOCRIT 35.7 % (40.0-51.0); HEMOGLOBIN 11.6 g/dL (13.6-17.8); IMMATURE GRANULOCYTES 0.3 %; IMMATURE GRANULOCYTES ABSOLUTE 0.04 10/3/uL (0.0-0.11); LYMPHOCYTES 4.7 %; LYMPHOCYTES ABSOLUTE 0.67 10/3/uL (0.67-4.30); MEAN CORPUS HGB CONC 32.5 g/dL (32.0-36.0); MEAN PLATELET VOLUME 11.2 fL (9.2-13.0); MONOCYTES 0.1 %; MONOCYTES ABSOLUTE 0.01 10/3/uL (0.21-1.20); NEUTROPHILS 94.9 %; NEUTROPHILS ABSOLUTE 13.42 10/3/uL (2.02-8.40); PLATELET COUNT 167 10/3/uL (150-400); RBC DISTRIBUTION WIDTH 16.5 % (12.0-16.0); RED CELL COUNT 4.15 10/6/uL (4.7-6.1)
[2016-04-20 15:26] LABS: MANUAL DIFF NO %; WHITE BLOOD CELLS 14.1 10/3/uL (4.5-10.5)
[2016-04-20 15:35] LABS: CALCIUM, SERUM 8.6 MG/DL (8.5-10.4); CHLORIDE, SERUM 105 MMOL/L (96-112); CO2 (CARBON DIOXIDE) 24 MMOL/L (24-34); CREATININE 1.48 MG/DL (0.70-1.30); GFR AFRICAN AMERICAN 54 ML/MIN (>=60); GFR NON AFRICAN AMERICAN 46 ML/MIN (>=60); SODIUM, SERUM 141 MMOL/L (135-148)
[2016-04-20 15:36] LABS: BUN (BLOOD UREA NITROGEN) 48 MG/DL (6-23); GLUCOSE, SERUM 152 MG/DL (60-99)
[2016-04-21 06:53] LABS: BASOPHILS 0 %; EOSINOPHILS 0 %; HEMATOCRIT 36.7 % (40.0-51.0); HEMOGLOBIN 11.9 g/dL (13.6-17.8); IMMATURE GRANULOCYTES 0.2 %; IMMATURE GRANULOCYTES ABSOLUTE 0.02 10/3/uL (0.0-0.11); LYMPHOCYTES 3.7 %; LYMPHOCYTES ABSOLUTE 0.35 10/3/uL (0.67-4.30); MANUAL DIFF NO %; MEAN CORPUS HGB CONC 32.4 g/dL (32.0-36.0); MEAN CORPUSCULAR HEMOGLOB 28.5 pg (26.0-34.0); MEAN PLATELET VOLUME 11.5 fL (9.2-13.0); MONOCYTES 3.3 %; MONOCYTES ABSOLUTE 0.32 10/3/uL (0.21-1.20); NEUTROPHILS 92.8 %; NEUTROPHILS ABSOLUTE 8.88 10/3/uL (2.02-8.40); PLATELET COUNT 132 10/3/uL (150-400); RBC DISTRIBUTION WIDTH 16.4 % (12.0-16.0); RED CELL COUNT 4.17 10/6/uL (4.7-6.1); WHITE BLOOD CELLS 9.6 10/3/uL (4.5-10.5)
[2016-04-21 07:07] LABS: BUN (BLOOD UREA NITROGEN) 49 MG/DL (6-23); CALCIUM, SERUM 8.8 MG/DL (8.5-10.4); CHLORIDE, SERUM 104 MMOL/L (96-112); CO2 (CARBON DIOXIDE) 24 MMOL/L (24-34); CREATININE 1.62 MG/DL (0.70-1.30); GFR AFRICAN AMERICAN 48 ML/MIN (>=60); GFR NON AFRICAN AMERICAN 41 ML/MIN (>=60); GLUCOSE, SERUM 138 MG/DL (60-99); SODIUM, SERUM 140 MMOL/L (135-148)
[2016-04-22 03:56] LABS: BASOPHILS 0 %; EOSINOPHILS 0 %; HEMATOCRIT 37.7 % (40.0-51.0); HEMOGLOBIN 12.4 g/dL (13.6-17.8); IMMATURE GRANULOCYTES 0.1 %; IMMATURE GRANULOCYTES ABSOLUTE 0.01 10/3/uL (0.0-0.11); LYMPHOCYTES 6.7 %; LYMPHOCYTES ABSOLUTE 0.52 10/3/uL (0.67-4.30); MEAN CORPUS HGB CONC 32.9 g/dL (32.0-36.0); MEAN CORPUSCULAR HEMOGLOB 28.9 pg (26.0-34.0); MEAN CORPUSCULAR VOLUME 87.9 fL (80-100); MEAN PLATELET VOLUME 11.9 fL (9.2-13.0); MONOCYTES 3.7 %; MONOCYTES ABSOLUTE 0.29 10/3/uL (0.21-1.20); NEUTROPHILS 89.5 %; NEUTROPHILS ABSOLUTE 6.97 10/3/uL (2.02-8.40); PLATELET COUNT 142 10/3/uL (150-400); RBC DISTRIBUTION WIDTH 16.2 % (12.0-16.0); RED CELL COUNT 4.29 10/6/uL (4.7-6.1); WHITE BLOOD CELLS 7.8 10/3/uL (4.5-10.5)
[2016-04-22 03:59] LABS: MANUAL DIFF NO %
[2016-04-22 04:06] LABS: INTERNATIONAL NORMAL RATI 1.5 UNITS (-); PROTIME (NOT ORD) 17.8 SEC (12.0-14.5)
[2016-04-22 04:17] LABS: CHLORIDE, SERUM 105 MMOL/L (96-112); CHOLESTEROL 115 MG/DL (< 200); CO2 (CARBON DIOXIDE) 24 MMOL/L (24-34); CREATININE 1.63 MG/DL (0.70-1.30); GFR AFRICAN AMERICAN 48 ML/MIN (>=60); GFR NON AFRICAN AMERICAN 41 ML/MIN (>=60); GLUCOSE, SERUM 123 MG/DL (60-99); PHOSPHORUS, SERUM 3.1 MG/DL (2.5-4.5); POTASSIUM, SERUM 5.1 MMOL/L (3.5-5.3); SODIUM, SERUM 141 MMOL/L (135-148)
[2016-04-22 04:18] LABS: ALBUMIN 3.5 G/DL (3.5-5.0); BUN (BLOOD UREA NITROGEN) 53 MG/DL (6-23); HDL CHOLESTEROL 29 MG/DL (> 39); LDL CHOLESTEROL 55 MG/DL (< 130); NON-HDL CHOLESTEROL 86 MG/DL (< 160); TRIGLYCERIDE 157 MG/DL (< 150)
[2016-04-22 10:00] LABS: ASCORBIC ACID (UR NOT ORDER) NEG (NEG); BILIRUBIN, URINE NEGATIVE (NEG); KETONE, URINE NEGATIVE (NEG); LEUKOCYTE ESTERASE(NOT OR NEG (NEG); WBC (NOT ORDERED) (RFLEX) 4 (0-5)
[2016-04-23 04:15] LABS: BASOPHILS 0 %; EOSINOPHILS 0 %; HEMATOCRIT 37.1 % (40.0-51.0); HEMOGLOBIN 11.8 g/dL (13.6-17.8); IMMATURE GRANULOCYTES 0.3 %; IMMATURE GRANULOCYTES ABSOLUTE 0.02 10/3/uL (0.0-0.11); LYMPHOCYTES 7.8 %; LYMPHOCYTES ABSOLUTE 0.61 10/3/uL (0.67-4.30); MEAN CORPUS HGB CONC 31.8 g/dL (32.0-36.0); MEAN CORPUSCULAR HEMOGLOB 28.2 pg (26.0-34.0); MEAN CORPUSCULAR VOLUME 88.8 fL (80-100); MEAN PLATELET VOLUME 12.2 fL (9.2-13.0); MONOCYTES 10.4 %; MONOCYTES ABSOLUTE 0.81 10/3/uL (0.21-1.20); NEUTROPHILS 81.5 %; NEUTROPHILS ABSOLUTE 6.34 10/3/uL (2.02-8.40); PLATELET COUNT 134 10/3/uL (150-400); RBC DISTRIBUTION WIDTH 16.5 % (12.0-16.0); RED CELL COUNT 4.18 10/6/uL (4.7-6.1); WHITE BLOOD CELLS 7.8 10/3/uL (4.5-10.5)
[2016-04-23 04:25] LABS: MANUAL DIFF NO %
[2016-04-23 04:31] LABS: A/G RATIO 1.4 (0.7-1.9); ALBUMIN 3.1 G/DL (3.5-5.0); BUN (BLOOD UREA NITROGEN) 53 MG/DL (6-23); CALCIUM, SERUM 8.3 MG/DL (8.5-10.4); CHLORIDE, SERUM 107 MMOL/L (96-112); CO2 (CARBON DIOXIDE) 24 MMOL/L (24-34); CREATININE 1.49 MG/DL (0.70-1.30); GFR AFRICAN AMERICAN 53 ML/MIN (>=60); GFR NON AFRICAN AMERICAN 46 ML/MIN (>=60); GLOBULIN 2.2 G/DL (2.5-4.1); GLUCOSE, SERUM 102 MG/DL (60-99); POTASSIUM, SERUM 5.9 MMOL/L (3.5-5.3); SGOT(AST) 67 U/L (5-40); SGPT(ALT) 52 U/L (5-65); SODIUM, SERUM 140 MMOL/L (135-148); TOTAL BILIRUBIN 0.7 MG/DL (0-1.2); TOTAL PROTEIN 5.3 G/DL (6.0-8.5)
[2016-04-23 04:44] LABS: ALKALINE PHOSPHATASE 90 U/L (45-117)
[2016-04-23 17:54] LABS: BE (BASE EXCESS) -0.2 MEQ/L (0 +/- 2.5); CARBOXYHEMOGLOBIN 0.5 % (0-3); HCO3 (ACTUAL BICARBONATE) 23.4 MEQ/L (23-27); HEMOBLOGIN CONTENT 12.7 G/DL (14-18); INSTRUMENT SERIAL # 8083; METHEMOGLOBIN 0.2 % (0-3); O2 CONTENT 17.4 VOL% (18-24); PCO2 (CO2 TENSION) 35 MMHG (35-45); PO2 (O2 TENSION) 100 MMHG (79-93); pH 7.45 (7.37-7.43)
[2016-04-23 17:55] LABS: ALLENS TEST Pos; OPERATOR ID 35798; SAMPLE Arterial
[2016-04-24 08:40] LABS: BASOPHILS 0 %; EOSINOPHILS 0.5 %; EOSINOPHILS ABSOLUTE 0.03 10/3/uL (0.0-0.53); HEMATOCRIT 36.5 % (40.0-51.0); HEMOGLOBIN 11.9 g/dL (13.6-17.8); IMMATURE GRANULOCYTES 0.3 %; IMMATURE GRANULOCYTES ABSOLUTE 0.02 10/3/uL (0.0-0.11); LYMPHOCYTES 10.7 %; MEAN CORPUS HGB CONC 32.6 g/dL (32.0-36.0); MEAN CORPUSCULAR VOLUME 88.8 fL (80-100); MEAN PLATELET VOLUME 12.5 fL (9.2-13.0); MONOCYTES 7.4 %; MONOCYTES ABSOLUTE 0.48 10/3/uL (0.21-1.20); NEUTROPHILS 81.1 %; PLATELET COUNT 105 10/3/uL (150-400); RBC DISTRIBUTION WIDTH 15.9 % (12.0-16.0); RED CELL COUNT 4.11 10/6/uL (4.7-6.1); WHITE BLOOD CELLS 6.5 10/3/uL (4.5-10.5)
[2016-04-24 08:43] LABS: MANUAL DIFF NO %
[2016-04-24 08:45] LABS: ALBUMIN 2.8 G/DL (3.5-5.0); BUN (BLOOD UREA NITROGEN) 41 MG/DL (6-23); CALCIUM, SERUM 7.8 MG/DL (8.5-10.4); CHLORIDE, SERUM 106 MMOL/L (96-112); CO2 (CARBON DIOXIDE) 28 MMOL/L (24-34); GFR AFRICAN AMERICAN 69 ML/MIN (>=60); GFR NON AFRICAN AMERICAN 60 ML/MIN (>=60); GLUCOSE, SERUM 93 MG/DL (60-99); PHOSPHORUS, SERUM 2.7 MG/DL (2.5-4.5); POTASSIUM, SERUM 4.3 MMOL/L (3.5-5.3); SODIUM, SERUM 141 MMOL/L (135-148)
[2016-04-25 08:01] LABS: HEMATOCRIT 35.1 % (40.0-51.0); HEMOGLOBIN 11.4 g/dL (13.6-17.8); MEAN CORPUS HGB CONC 32.5 g/dL (32.0-36.0); MEAN CORPUSCULAR VOLUME 86.2 fL (80-100); MEAN PLATELET VOLUME 12.4 fL (9.2-13.0); PLATELET COUNT 108 10/3/uL (150-400); RBC DISTRIBUTION WIDTH 15.9 % (12.0-16.0); RED CELL COUNT 4.07 10/6/uL (4.7-6.1); WHITE BLOOD CELLS 6.3 10/3/uL (4.5-10.5)
[2016-04-25 08:02] LABS: MANUAL DIFF YES %
[2016-04-25 08:16] LABS: BUN (BLOOD UREA NITROGEN) 39 MG/DL (6-23); CALCIUM, SERUM 8.3 MG/DL (8.5-10.4); CHLORIDE, SERUM 105 MMOL/L (96-112); CO2 (CARBON DIOXIDE) 27 MMOL/L (24-34); CREATININE 1.34 MG/DL (0.70-1.30); GFR AFRICAN AMERICAN 60 ML/MIN (>=60); GFR NON AFRICAN AMERICAN 52 ML/MIN (>=60); GLUCOSE, SERUM 134 MG/DL (60-99); POTASSIUM, SERUM 4.1 MMOL/L (3.5-5.3); SODIUM, SERUM 140 MMOL/L (135-148)
[2016-04-25 10:01] LABS: BAND NEUTROPHILS 8 %; EOSINOPHILS 1 %; EOSINOPHILS ABSOLUTE (CALC) 0.06 10/3/uL (0.0-0.53); HELMET CELLS OCC (0-2/OIF); LYMPHOCYTES 13 %; LYMPHOCYTES ABSOLUTE (CALC) 0.82 10/3/uL (0.67-4.30); MONOCYTES 5 %; MONOCYTES ABSOLUTE (CALC) 0.32 10/3/uL (0.21-1.20); PLATELET ESTIMATE SLT DEC (ADEQUATE); SEGMENTED NEUTROPHIL (0) 73 %; TOTAL NUCLEATED CELLS 100; TOXIC GRANULATION SLT; VACUOLATED NEUTROPHILES OCC
[2016-04-25 10:05] LABS: POLYCHROMASIA 1+ (2-5/OIF) (0-1/OIF); TEARDROP SHAPED RBCS OCC (0-2/OIF)
[2016-04-25 10:06] LABS: ELLIPTOCYTES 1+ (3-10/OIF) (0-2/OIF)
[2016-04-26 05:04] LABS: BASOPHILS 0 %; EOSINOPHILS 0 %; HEMATOCRIT 36.6 % (40.0-51.0); HEMOGLOBIN 11.8 g/dL (13.6-17.8); IMMATURE GRANULOCYTES 0.2 %; IMMATURE GRANULOCYTES ABSOLUTE 0.02 10/3/uL (0.0-0.11); LYMPHOCYTES 6.6 %; LYMPHOCYTES ABSOLUTE 0.77 10/3/uL (0.67-4.30); MEAN CORPUS HGB CONC 32.2 g/dL (32.0-36.0); MEAN CORPUSCULAR HEMOGLOB 27.9 pg (26.0-34.0); MEAN CORPUSCULAR VOLUME 86.5 fL (80-100); MEAN PLATELET VOLUME 12.6 fL (9.2-13.0); MONOCYTES 2.2 %; MONOCYTES ABSOLUTE 0.26 10/3/uL (0.21-1.20); NEUTROPHILS ABSOLUTE 10.68 10/3/uL (2.02-8.40); PLATELET COUNT 136 10/3/uL (150-400); RBC DISTRIBUTION WIDTH 16.2 % (12.0-16.0); RED CELL COUNT 4.23 10/6/uL (4.7-6.1)
[2016-04-26 05:06] LABS: MANUAL DIFF NO %; WHITE BLOOD CELLS 11.7 10/3/uL (4.5-10.5)
[2016-04-26 05:20] LABS: CALCIUM, SERUM 8.4 MG/DL (8.5-10.4); CHLORIDE, SERUM 104 MMOL/L (96-112); CO2 (CARBON DIOXIDE) 26 MMOL/L (24-34); CREATININE 1.47 MG/DL (0.70-1.30); GFR AFRICAN AMERICAN 54 ML/MIN (>=60); GFR NON AFRICAN AMERICAN 47 ML/MIN (>=60); GLUCOSE, SERUM 147 MG/DL (60-99); POTASSIUM, SERUM 4.3 MMOL/L (3.5-5.3); SODIUM, SERUM 141 MMOL/L (135-148)
[2016-04-26 05:21] LABS: BUN (BLOOD UREA NITROGEN) 45 MG/DL (6-23)
[2016-04-27 05:40] LABS: BASOPHILS 0 %; EOSINOPHILS 0 %; HEMATOCRIT 37.5 % (40.0-51.0); HEMOGLOBIN 12.3 g/dL (13.6-17.8); IMMATURE GRANULOCYTES 0.4 %; IMMATURE GRANULOCYTES ABSOLUTE 0.03 10/3/uL (0.0-0.11); LYMPHOCYTES 7.8 %; LYMPHOCYTES ABSOLUTE 0.66 10/3/uL (0.67-4.30); MEAN CORPUS HGB CONC 32.8 g/dL (32.0-36.0); MEAN CORPUSCULAR HEMOGLOB 28.7 pg (26.0-34.0); MEAN CORPUSCULAR VOLUME 87.6 fL (80-100); MEAN PLATELET VOLUME 11.9 fL (9.2-13.0); MONOCYTES 9.3 %; MONOCYTES ABSOLUTE 0.78 10/3/uL (0.21-1.20); NEUTROPHILS 82.5 %; NEUTROPHILS ABSOLUTE 6.94 10/3/uL (2.02-8.40); PLATELET COUNT 140 10/3/uL (150-400); RBC DISTRIBUTION WIDTH 16.1 % (12.0-16.0); RED CELL COUNT 4.28 10/6/uL (4.7-6.1); WHITE BLOOD CELLS 8.4 10/3/uL (4.5-10.5)
[2016-04-27 05:44] LABS: MANUAL DIFF NO %
[2016-04-27 06:03] LABS: BUN (BLOOD UREA NITROGEN) 47 MG/DL (6-23); CALCIUM, SERUM 8.8 MG/DL (8.5-10.4); CHLORIDE, SERUM 98 MMOL/L (96-112); CO2 (CARBON DIOXIDE) 32 MMOL/L (24-34); CREATININE 1.49 MG/DL (0.70-1.30); GFR AFRICAN AMERICAN 53 ML/MIN (>=60); GFR NON AFRICAN AMERICAN 46 ML/MIN (>=60); GLUCOSE, SERUM 105 MG/DL (60-99); PHOSPHORUS, SERUM 2.9 MG/DL (2.5-4.5); POTASSIUM, SERUM 4.3 MMOL/L (3.5-5.3); SODIUM, SERUM 139 MMOL/L (135-148)
[2016-04-28 03:59] LABS: BASOPHILS 0 %; EOSINOPHILS 0.7 %; EOSINOPHILS ABSOLUTE 0.06 10/3/uL (0.0-0.53); HEMATOCRIT 40.6 % (40.0-51.0); HEMOGLOBIN 13.3 g/dL (13.6-17.8); IMMATURE GRANULOCYTES 0.7 %; IMMATURE GRANULOCYTES ABSOLUTE 0.06 10/3/uL (0.0-0.11); LYMPHOCYTES ABSOLUTE 1.13 10/3/uL (0.67-4.30); MEAN CORPUS HGB CONC 32.8 g/dL (32.0-36.0); MEAN CORPUSCULAR HEMOGLOB 28.8 pg (26.0-34.0); MEAN CORPUSCULAR VOLUME 87.9 fL (80-100); MEAN PLATELET VOLUME 12.4 fL (9.2-13.0); MONOCYTES 10.7 %; MONOCYTES ABSOLUTE 0.93 10/3/uL (0.21-1.20); NEUTROPHILS 74.9 %; NEUTROPHILS ABSOLUTE 6.53 10/3/uL (2.02-8.40); PLATELET COUNT 143 10/3/uL (150-400); RBC DISTRIBUTION WIDTH 16.2 % (12.0-16.0); RED CELL COUNT 4.62 10/6/uL (4.7-6.1); WHITE BLOOD CELLS 8.7 10/3/uL (4.5-10.5)
[2016-04-28 04:00] LABS: MANUAL DIFF NO %
[2016-04-28 04:16] LABS: CALCIUM, SERUM 8.9 MG/DL (8.5-10.4); CHLORIDE, SERUM 98 MMOL/L (96-112); CO2 (CARBON DIOXIDE) 35 MMOL/L (24-34); CREATININE 1.44 MG/DL (0.70-1.30); GFR AFRICAN AMERICAN 55 ML/MIN (>=60); GFR NON AFRICAN AMERICAN 48 ML/MIN (>=60); GLUCOSE, SERUM 109 MG/DL (60-99); PHOSPHORUS, SERUM 2.8 MG/DL (2.5-4.5); POTASSIUM, SERUM 4.6 MMOL/L (3.5-5.3); SODIUM, SERUM 140 MMOL/L (135-148)
[2016-04-28 04:23] LABS: BUN (BLOOD UREA NITROGEN) 56 MG/DL (6-23)
[2016-04-29 04:38] LABS: BASOPHILS 0.1 %; BASOPHILS ABSOLUTE 0.01 10/3/uL (0.0-0.16); EOSINOPHILS 0.8 %; EOSINOPHILS ABSOLUTE 0.06 10/3/uL (0.0-0.53); HEMOGLOBIN 12.7 g/dL (13.6-17.8); IMMATURE GRANULOCYTES 0.8 %; IMMATURE GRANULOCYTES ABSOLUTE 0.06 10/3/uL (0.0-0.11); LYMPHOCYTES 12.5 %; LYMPHOCYTES ABSOLUTE 0.93 10/3/uL (0.67-4.30); MEAN CORPUSCULAR HEMOGLOB 27.5 pg (26.0-34.0); MEAN CORPUSCULAR VOLUME 88.7 fL (80-100); MEAN PLATELET VOLUME 12.5 fL (9.2-13.0); MONOCYTES 10.8 %; NEUTROPHILS ABSOLUTE 5.57 10/3/uL (2.02-8.40); PLATELET COUNT 134 10/3/uL (150-400); RBC DISTRIBUTION WIDTH 16.5 % (12.0-16.0); RED CELL COUNT 4.62 10/6/uL (4.7-6.1); WHITE BLOOD CELLS 7.4 10/3/uL (4.5-10.5)
[2016-04-29 04:41] LABS: INTERNATIONAL NORMAL RATI 1.2 UNITS (-); PROTIME (NOT ORD) 15.3 SEC (12.0-14.5)
[2016-04-29 04:50] LABS: MANUAL DIFF NO %
[2016-04-29 04:54] LABS: CALCIUM, SERUM 8.8 MG/DL (8.5-10.4); CHLORIDE, SERUM 97 MMOL/L (96-112); CHOL/HDL RATIO(NOT ORDER) 3.1 (0-5); CHOLESTEROL 113 MG/DL (< 200); CO2 (CARBON DIOXIDE) 33 MMOL/L (24-34); CREATININE 1.28 MG/DL (0.70-1.30); GFR AFRICAN AMERICAN 64 ML/MIN (>=60); GFR NON AFRICAN AMERICAN 55 ML/MIN (>=60); GLUCOSE, SERUM 92 MG/DL (60-99); LDL CHOLESTEROL 54 MG/DL (< 130); NON-HDL CHOLESTEROL 77 MG/DL (< 160); POTASSIUM, SERUM 4.5 MMOL/L (3.5-5.3); SODIUM, SERUM 140 MMOL/L (135-148); TRIGLYCERIDE 119 MG/DL (< 150)
[2016-04-29 04:55] LABS: BUN (BLOOD UREA NITROGEN) 49 MG/DL (6-23); HDL CHOLESTEROL 36 MG/DL (> 39)
[2016-04-29 14:29] LABS: BUN (BLOOD UREA NITROGEN) 46 MG/DL (6-23); CALCIUM, SERUM 8.2 MG/DL (8.5-10.4); CHLORIDE, SERUM 101 MMOL/L (96-112); CO2 (CARBON DIOXIDE) 34 MMOL/L (24-34); CREATININE 1.19 MG/DL (0.70-1.30); GFR AFRICAN AMERICAN 70 ML/MIN (>=60); GFR NON AFRICAN AMERICAN 60 ML/MIN (>=60); GLUCOSE, SERUM 82 MG/DL (60-99); POTASSIUM, SERUM 4.3 MMOL/L (3.5-5.3); SODIUM, SERUM 142 MMOL/L (135-148)
[2016-04-30 05:39] LABS: HEMATOCRIT 37.6 % (40.0-51.0); HEMOGLOBIN 11.7 g/dL (13.6-17.8); MEAN CORPUS HGB CONC 31.1 g/dL (32.0-36.0); MEAN CORPUSCULAR HEMOGLOB 27.7 pg (26.0-34.0); MEAN CORPUSCULAR VOLUME 88.9 fL (80-100); MEAN PLATELET VOLUME 12.5 fL (9.2-13.0); PLATELET COUNT 124 10/3/uL (150-400); RBC DISTRIBUTION WIDTH 16.5 % (12.0-16.0); RED CELL COUNT 4.23 10/6/uL (4.7-6.1); WHITE BLOOD CELLS 7.2 10/3/uL (4.5-10.5)
[2016-04-30 05:41] LABS: MANUAL DIFF YES %
[2016-04-30 05:55] LABS: ALBUMIN 2.9 G/DL (3.5-5.0); CALCIUM, SERUM 8.3 MG/DL (8.5-10.4); CHLORIDE, SERUM 102 MMOL/L (96-112); CO2 (CARBON DIOXIDE) 33 MMOL/L (24-34); GFR AFRICAN AMERICAN 63 ML/MIN (>=60); GFR NON AFRICAN AMERICAN 54 ML/MIN (>=60); GLUCOSE, SERUM 94 MG/DL (60-99); PHOSPHORUS, SERUM 3.5 MG/DL (2.5-4.5); POTASSIUM, SERUM 4.4 MMOL/L (3.5-5.3); SODIUM, SERUM 143 MMOL/L (135-148)
[2016-04-30 06:00] LABS: BUN (BLOOD UREA NITROGEN) 42 MG/DL (6-23)
[2016-04-30 06:16] LABS: BAND NEUTROPHILS 3 %; EOSINOPHILS 1 %; EOSINOPHILS ABSOLUTE (CALC) 0.07 10/3/uL (0.0-0.53); LYMPHOCYTES 10 %; LYMPHOCYTES ABSOLUTE (CALC) 0.72 10/3/uL (0.67-4.30); MONOCYTES 7 %; PLATELET ESTIMATE SLT DEC (ADEQUATE); SEGMENTED NEUTROPHIL (0) 79 %; TOTAL NUCLEATED CELLS 100
[2016-04-30 06:17] LABS: TOXIC GRANULATION 1+
[2016-04-30 06:56] LABS: B NATRIURETIC PEPTIDE (BNP) 969.3 PG/ML (< 100.0)
[2016-04-30 14:38] LABS: GLYCOHEMOGLOBIN (HbA1c) 5.7 % (4.7-6.1)
[2016-05-01 09:54] LABS: BUN (BLOOD UREA NITROGEN) 40 MG/DL (6-23); CALCIUM, SERUM 8.2 MG/DL (8.5-10.4); CHLORIDE, SERUM 103 MMOL/L (96-112); CO2 (CARBON DIOXIDE) 32 MMOL/L (24-34); CREATININE 1.41 MG/DL (0.70-1.30); GFR AFRICAN AMERICAN 57 ML/MIN (>=60); GFR NON AFRICAN AMERICAN 49 ML/MIN (>=60); POTASSIUM, SERUM 4.3 MMOL/L (3.5-5.3); SODIUM, SERUM 141 MMOL/L (135-148)
[2016-05-01 09:55] LABS: GLUCOSE, SERUM 116 MG/DL (60-99)
[2016-05-03 09:04] LABS: BUN (BLOOD UREA NITROGEN) 43 MG/DL (6-23); CALCIUM, SERUM 8.5 MG/DL (8.5-10.4); CHLORIDE, SERUM 102 MMOL/L (96-112); CO2 (CARBON DIOXIDE) 29 MMOL/L (24-34); CREATININE 1.16 MG/DL (0.70-1.30); GFR AFRICAN AMERICAN 72 ML/MIN (>=60); GFR NON AFRICAN AMERICAN 62 ML/MIN (>=60); GLUCOSE, SERUM 105 MG/DL (60-99); POTASSIUM, SERUM 4.6 MMOL/L (3.5-5.3); SODIUM, SERUM 139 MMOL/L (135-148)
[2016-05-03 09:05] LABS: DIGOXIN 1.6 NG/ML (0.8-2.0)
[2016-05-04 09:24] LABS: HEMATOCRIT 40.9 % (40.0-51.0); HEMOGLOBIN 13.1 g/dL (13.6-17.8); MEAN CORPUSCULAR HEMOGLOB 28.4 pg (26.0-34.0); MEAN CORPUSCULAR VOLUME 88.5 fL (80-100); MEAN PLATELET VOLUME 11.9 fL (9.2-13.0); PLATELET COUNT 122 10/3/uL (150-400); RBC DISTRIBUTION WIDTH 16.8 % (12.0-16.0); RED CELL COUNT 4.62 10/6/uL (4.7-6.1)
[2016-05-04 09:25] LABS: MANUAL DIFF YES %; WHITE BLOOD CELLS 14.9 10/3/uL (4.5-10.5)
[2016-05-04 09:42] LABS: BAND NEUTROPHILS 15 %; LYMPHOCYTES 9 %; LYMPHOCYTES ABSOLUTE (CALC) 1.34 10/3/uL (0.67-4.30); METAMYELOCYTES 2 %; MONOCYTES 8 %; MONOCYTES ABSOLUTE (CALC) 1.19 10/3/uL (0.21-1.20); NEUTROPHILS ABSOLUTE (CALC) 12.07 10/3/uL (2.02-8.40); PLATELET ESTIMATE SLT DEC (ADEQUATE); RBC MORPHOLOGY NORM (NORMAL); SEGMENTED NEUTROPHIL (0) 66 %; TOTAL NUCLEATED CELLS 100
[2016-05-04 09:44] LABS: A/G RATIO 1.1 (0.7-1.9); ALBUMIN 3.2 G/DL (3.5-5.0); ALKALINE PHOSPHATASE 98 U/L (45-117); BUN (BLOOD UREA NITROGEN) 52 MG/DL (6-23); CALCIUM, SERUM 8.6 MG/DL (8.5-10.4); CHLORIDE, SERUM 97 MMOL/L (96-112); CO2 (CARBON DIOXIDE) 17 MMOL/L (24-34); CREATININE 1.66 MG/DL (0.70-1.30); GFR AFRICAN AMERICAN 47 ML/MIN (>=60); GFR NON AFRICAN AMERICAN 40 ML/MIN (>=60); GLOBULIN 2.9 G/DL (2.5-4.1); GLUCOSE, SERUM 97 MG/DL (60-99); POTASSIUM, SERUM 5.9 MMOL/L (3.5-5.3); SGOT(AST) 646 U/L (5-40); SGPT(ALT) 315 U/L (5-65); SODIUM, SERUM 135 MMOL/L (135-148); TOTAL BILIRUBIN 2.6 MG/DL (0-1.2); TOTAL PROTEIN 6.1 G/DL (6.0-8.5)
[2016-05-04 12:24] LABS: HEPATITIS B SURFACE ANTIGEN NON-REACTIVE (NON-REACT)
[2016-05-04 12:52] LABS: HEPATITIS B CORE AB IGM NON-REACTIVE (NON-REAC); HEPATITIS C ANTIBODY NON-REACTIVE (NON-REACT)
[2016-05-04 12:54] LABS: HEP A ANTIBODY IGM NON-REACTIVE (NON-REACT)
[2016-05-04 14:19] LABS: ASCORBIC ACID (UR NOT ORDER) NEG (NEG); BILIRUBIN, URINE NEGATIVE (NEG); KETONE, URINE NEGATIVE (NEG); LEUKOCYTE ESTERASE(NOT OR NEG (NEG); WBC (NOT ORDERED) (RFLEX) 1 (0-5)
[2016-05-04 14:44] LABS: ALLENS TEST Pos; BE (BASE EXCESS) -2.8 MEQ/L (0 +/- 2.5); CARBOXYHEMOGLOBIN 0.3 % (0-3); DEVICE NC; HEMOBLOGIN CONTENT 11.8 G/DL (14-18); INSTRUMENT SERIAL # 35151; METHEMOGLOBIN 0.8 % (0-3); O2 CONTENT 15.9 VOL% (18-24); PCO2 (CO2 TENSION) 29 MMHG (35-45); PO2 (O2 TENSION) 96 MMHG (79-93); SAMPLE Arterial; pH 7.46 (7.37-7.43)
[2016-05-04 16:03] LABS: DIGOXIN 1.8 NG/ML (0.8-2.0)
[2016-05-04 20:16] LABS: A/G RATIO 1.1 (0.7-1.9); ALBUMIN 3.1 G/DL (3.5-5.0); ALKALINE PHOSPHATASE 94 U/L (45-117); CHLORIDE, SERUM 95 MMOL/L (96-112); CREATININE 2.06 MG/DL (0.70-1.30); GFR AFRICAN AMERICAN 36 ML/MIN (>=60); GFR NON AFRICAN AMERICAN 31 ML/MIN (>=60); GLOBULIN 2.7 G/DL (2.5-4.1); GLUCOSE, SERUM 85 MG/DL (60-99); SODIUM, SERUM 134 MMOL/L (135-148); TOTAL PROTEIN 5.8 G/DL (6.0-8.5)
[2016-05-04 20:48] LABS: BUN (BLOOD UREA NITROGEN) 62 MG/DL (6-23); CO2 (CARBON DIOXIDE) 25 MMOL/L (24-34); PHOSPHORUS, SERUM 4.7 MG/DL (2.5-4.5); POTASSIUM, SERUM 6.2 MMOL/L (3.5-5.3)
[2016-05-04 20:49] LABS: DIGOXIN 2.6 NG/ML (0.8-2.0); SGOT(AST) 9322 U/L (5-40); SGPT(ALT) 3028 U/L (5-65)
[2016-05-04 23:42] LABS: BUN (BLOOD UREA NITROGEN) 65 MG/DL (6-23); CHLORIDE, SERUM 100 MMOL/L (96-112); CREATININE 2.24 MG/DL (0.70-1.30); GFR AFRICAN AMERICAN 32 ML/MIN (>=60); GFR NON AFRICAN AMERICAN 28 ML/MIN (>=60); GLUCOSE, SERUM 89 MG/DL (60-99); SODIUM, SERUM 133 MMOL/L (135-148)
[2016-05-04 23:44] LABS: CO2 (CARBON DIOXIDE) 19 MMOL/L (24-34); DIGOXIN 2.1 NG/ML (0.8-2.0); POTASSIUM, SERUM 5.8 MMOL/L (3.5-5.3)
[2016-05-05 05:06] LABS: HEMOGLOBIN 11.3 g/dL (13.6-17.8); MEAN CORPUS HGB CONC 32.8 g/dL (32.0-36.0); MEAN CORPUSCULAR HEMOGLOB 28.8 pg (26.0-34.0); MEAN CORPUSCULAR VOLUME 87.8 fL (80-100); MEAN PLATELET VOLUME 13.1 fL (9.2-13.0); NUCLEATED RED BLOOD CELLS 0.5 /100WBC (0-0); PLATELET COUNT 98 10/3/uL (150-400); RBC DISTRIBUTION WIDTH 16.5 % (12.0-16.0); RED CELL COUNT 3.92 10/6/uL (4.7-6.1); WHITE BLOOD CELLS 13.1 10/3/uL (4.5-10.5)
[2016-05-05 05:07] LABS: HEMATOCRIT 34.4 % (40.0-51.0); MANUAL DIFF YES %
[2016-05-05 05:41] LABS: A/G RATIO 1.2 (0.7-1.9); ALBUMIN 2.8 G/DL (3.5-5.0); ALKALINE PHOSPHATASE 96 U/L (45-117); CALCIUM, SERUM 7.8 MG/DL (8.5-10.4); CHLORIDE, SERUM 100 MMOL/L (96-112); CO2 (CARBON DIOXIDE) 22 MMOL/L (24-34); CREATININE 2.54 MG/DL (0.70-1.30); GFR AFRICAN AMERICAN 28 ML/MIN (>=60); GFR NON AFRICAN AMERICAN 24 ML/MIN (>=60); GLOBULIN 2.3 G/DL (2.5-4.1); GLUCOSE, SERUM 86 MG/DL (60-99); PHOSPHORUS, SERUM 4.2 MG/DL (2.5-4.5); SGPT(ALT) 3517 U/L (5-65); SODIUM, SERUM 136 MMOL/L (135-148); TOTAL PROTEIN 5.1 G/DL (6.0-8.5)
[2016-05-05 05:45] LABS: BUN (BLOOD UREA NITROGEN) 72 MG/DL (6-23); DIGOXIN 1.8 NG/ML (0.8-2.0); TOTAL BILIRUBIN 2.1 MG/DL (0-1.2)
[2016-05-05 05:52] LABS: BAND NEUTROPHILS 5 %; IMMATURE GRANS ABSOLUTE (CALC) 0.13 10/3/uL (0.0-0.11); LYMPHOCYTES 6 %; LYMPHOCYTES ABSOLUTE (CALC) 0.79 10/3/uL (0.67-4.30); METAMYELOCYTES 1 %; MONOCYTES 1 %; MONOCYTES ABSOLUTE (CALC) 0.13 10/3/uL (0.21-1.20); NEUTROPHILS ABSOLUTE (CALC) 12.05 10/3/uL (2.02-8.40); SEGMENTED NEUTROPHIL (0) 87 %; TOTAL NUCLEATED CELLS 100
[2016-05-05 05:53] LABS: PLATELET ESTIMATE ADQ (ADEQUATE); POIKILOCYTOSIS 1+ (5-10/OIF) (0-5/OIF)
[2016-05-05 06:21] LABS: SGOT(AST) 11851 U/L (5-40)
[2016-05-05 15:01] LABS: A/G RATIO 1.3 (0.7-1.9); ALBUMIN 2.9 G/DL (3.5-5.0); ALKALINE PHOSPHATASE 106 U/L (45-117); CALCIUM, SERUM 7.5 MG/DL (8.5-10.4); CHLORIDE, SERUM 100 MMOL/L (96-112); CO2 (CARBON DIOXIDE) 24 MMOL/L (24-34); CREATININE 2.76 MG/DL (0.70-1.30); GFR AFRICAN AMERICAN 25 ML/MIN (>=60); GFR NON AFRICAN AMERICAN 22 ML/MIN (>=60); GLOBULIN 2.3 G/DL (2.5-4.1); POTASSIUM, SERUM 4.5 MMOL/L (3.5-5.3); SGOT(AST) 8769 U/L (5-40); SGPT(ALT) 3575 U/L (5-65); SODIUM, SERUM 136 MMOL/L (135-148); TOTAL PROTEIN 5.2 G/DL (6.0-8.5)
[2016-05-05 15:04] LABS: BUN (BLOOD UREA NITROGEN) 76 MG/DL (6-23); GLUCOSE, SERUM 68 MG/DL (60-99)
[2016-05-05 17:16] LABS: INTERNATIONAL NORMAL RATI 9.4 UNITS (-); PROTIME (NOT ORD) 75.1 SEC (12.0-14.5)
[2016-05-05 17:33] LABS: DIRECT BILIRUBIN 1.3 MG/DL (0.0-0.4); INDIRECT BILIRUBIN(NOT ORDER) 0.8 MG/DL (0.1-0.9); TOTAL BILIRUBIN 2.1 MG/DL (0-1.2)
[2016-05-05 17:55] LABS: PROTIME (NOT ORD) 76.6 SEC (12.0-14.5)
[2016-05-05 17:56] LABS: INTERNATIONAL NORMAL RATI 9.6 UNITS (-)
[2016-05-06 02:44] LABS: HEMATOCRIT 34.9 % (40.0-51.0); HEMOGLOBIN 11.5 g/dL (13.6-17.8); MEAN CORPUSCULAR HEMOGLOB 29.3 pg (26.0-34.0); MEAN CORPUSCULAR VOLUME 88.8 fL (80-100); MEAN PLATELET VOLUME 13.1 fL (9.2-13.0); PLATELET COUNT 74 10/3/uL (150-400); RBC DISTRIBUTION WIDTH 16.5 % (12.0-16.0); RED CELL COUNT 3.93 10/6/uL (4.7-6.1); WHITE BLOOD CELLS 11.2 10/3/uL (4.5-10.5)
[2016-05-06 02:47] LABS: NUCLEATED RED BLOOD CELLS 1.2 /100WBC (0-0)
[2016-05-06 02:52] LABS: PARTIAL THROMBO TIME 36.4 SEC (22.5-37.2)
[2016-05-06 02:54] LABS: MANUAL DIFF YES %
[2016-05-06 03:14] LABS: ALBUMIN 3.5 G/DL (3.5-5.0); BAND NEUTROPHILS 5 %; BUN (BLOOD UREA NITROGEN) 78 MG/DL (6-23); CALCIUM, SERUM 7.6 MG/DL (8.5-10.4); CHLORIDE, SERUM 99 MMOL/L (96-112); CO2 (CARBON DIOXIDE) 20 MMOL/L (24-34); CREATININE 3.04 MG/DL (0.70-1.30); ELLIPTOCYTES 1+ (3-10/OIF) (0-2/OIF); GFR AFRICAN AMERICAN 22 ML/MIN (>=60); GFR NON AFRICAN AMERICAN 19 ML/MIN (>=60); LYMPHOCYTES 7 %; LYMPHOCYTES ABSOLUTE (CALC) 0.78 10/3/uL (0.67-4.30); MONOCYTES 1 %; MONOCYTES ABSOLUTE (CALC) 0.11 10/3/uL (0.21-1.20); POTASSIUM, SERUM 4.4 MMOL/L (3.5-5.3); SEGMENTED NEUTROPHIL (0) 87 %; SGOT(AST) 6470 U/L (5-40); SGPT(ALT) 3230 U/L (5-65); SODIUM, SERUM 138 MMOL/L (135-148); TOTAL NUCLEATED CELLS 100
[2016-05-06 03:15] LABS: TEARDROP SHAPED RBCS OCC (0-2/OIF)
[2016-05-06 03:23] LABS: PLATELET ESTIMATE DEC (ADEQUATE)
[2016-05-06 03:40] LABS: A/G RATIO 1.3 (0.7-1.9); ALKALINE PHOSPHATASE 118 U/L (45-117); GLOBULIN 2.6 G/DL (2.5-4.1); GLUCOSE, SERUM 101 MG/DL (60-99); TOTAL BILIRUBIN 2.6 MG/DL (0-1.2); TOTAL PROTEIN 6.1 G/DL (6.0-8.5)
[2016-05-06 03:58] LABS: INTERNATIONAL NORMAL RATI 4.3 UNITS (-)
[2016-05-06 04:09] LABS: PROTIME (NOT ORD) 41.2 SEC (12.0-14.5)
[2016-05-06 16:58] LABS: VANCOMYCIN TROUGH 12.2 MCG/ML (10.0-20.0)
[2016-05-06 16:59] LABS: ALBUMIN 2.7 G/DL (3.5-5.0); INDIRECT BILIRUBIN(NOT ORDER) 0.8 MG/DL (0.1-0.9); TOTAL BILIRUBIN 1.8 MG/DL (0-1.2)
[2016-05-07 04:59] LABS: FIBRINOGEN 315 MG/DL (230-462); INTERNATIONAL NORMAL RATI 3.8 UNITS (-); PARTIAL THROMBO TIME 36.4 SEC (22.5-37.2); PROTIME (NOT ORD) 37.3 SEC (12.0-14.5)
[2016-05-07 05:06] LABS: HEMATOCRIT 33.4 % (40.0-51.0); HEMOGLOBIN 10.7 g/dL (13.6-17.8); MEAN CORPUSCULAR HEMOGLOB 28.2 pg (26.0-34.0); MEAN CORPUSCULAR VOLUME 87.9 fL (80-100); MEAN PLATELET VOLUME 12.6 fL (9.2-13.0); NUCLEATED RED BLOOD CELLS 1.3 /100WBC (0-0); RBC DISTRIBUTION WIDTH 16.7 % (12.0-16.0)
[2016-05-07 05:07] LABS: MANUAL DIFF YES %; PLATELET COUNT 42 10/3/uL (150-400); WHITE BLOOD CELLS 6.7 10/3/uL (4.5-10.5)
[2016-05-07 05:17] LABS: A/G RATIO 1.3 (0.7-1.9); ALBUMIN 2.9 G/DL (3.5-5.0); ALKALINE PHOSPHATASE 111 U/L (45-117); BUN (BLOOD UREA NITROGEN) 66 MG/DL (6-23); CALCIUM, SERUM 7.5 MG/DL (8.5-10.4); CHLORIDE, SERUM 106 MMOL/L (96-112); CO2 (CARBON DIOXIDE) 21 MMOL/L (24-34); CREATININE 2.39 MG/DL (0.70-1.30); DIRECT BILIRUBIN 0.9 MG/DL (0.0-0.4); GFR AFRICAN AMERICAN 30 ML/MIN (>=60); GFR NON AFRICAN AMERICAN 26 ML/MIN (>=60); GLOBULIN 2.3 G/DL (2.5-4.1); GLUCOSE, SERUM 102 MG/DL (60-99); PHOSPHORUS, SERUM 3.4 MG/DL (2.5-4.5); POTASSIUM, SERUM 3.7 MMOL/L (3.5-5.3); SGOT(AST) 3038 U/L (5-40); SGPT(ALT) 2487 U/L (5-65); SODIUM, SERUM 139 MMOL/L (135-148); TOTAL BILIRUBIN 1.9 MG/DL (0-1.2); TOTAL PROTEIN 5.2 G/DL (6.0-8.5)
[2016-05-07 06:53] LABS: BAND NEUTROPHILS 8 %; ELLIPTOCYTES 1+ (3-10/OIF) (0-2/OIF); HYPOCHROMIA 1+ (3-10/OIF) (0-2/OIF); LYMPHOCYTES 8 %; LYMPHOCYTES ABSOLUTE (CALC) 0.54 10/3/uL (0.67-4.30); MICROCYTES 1+ (5-10/OIF) (0-5/OIF); MONOCYTES 11 %; MONOCYTES ABSOLUTE (CALC) 0.74 10/3/uL (0.21-1.20); NEUTROPHILS ABSOLUTE (CALC) 5.43 10/3/uL (2.02-8.40); POIKILOCYTOSIS 1+ (5-10/OIF) (0-5/OIF); POLYCHROMASIA 1+ (2-5/OIF) (0-1/OIF); SEGMENTED NEUTROPHIL (0) 73 %; TOTAL NUCLEATED CELLS 100
[2016-05-07 17:47] LABS: ALBUMIN 2.9 G/DL (3.5-5.0); DIRECT BILIRUBIN 1.7 MG/DL (0.0-0.4); INDIRECT BILIRUBIN(NOT ORDER) 1.1 MG/DL (0.1-0.9); TOTAL BILIRUBIN 2.8 MG/DL (0-1.2); TOTAL PROTEIN 5.3 G/DL (6.0-8.5)
[2016-05-08 04:27] LABS: PARTIAL THROMBO TIME 36.9 SEC (22.5-37.2)
[2016-05-08 04:37] LABS: INTERNATIONAL NORMAL RATI 5.3 UNITS (-); PROTIME (NOT ORD) 48.3 SEC (12.0-14.5)
[2016-05-08 04:39] LABS: HEMATOCRIT 34.2 % (40.0-51.0); HEMOGLOBIN 11.2 g/dL (13.6-17.8); MEAN CORPUS HGB CONC 32.7 g/dL (32.0-36.0); MEAN CORPUSCULAR HEMOGLOB 28.6 pg (26.0-34.0); MEAN CORPUSCULAR VOLUME 87.2 fL (80-100); NUCLEATED RED BLOOD CELLS 1.4 /100WBC (0-0); RBC DISTRIBUTION WIDTH 17.2 % (12.0-16.0); RED CELL COUNT 3.92 10/6/uL (4.7-6.1); WHITE BLOOD CELLS 7.7 10/3/uL (4.5-10.5)
[2016-05-08 04:41] LABS: MANUAL DIFF YES %; PLATELET COUNT 42 10/3/uL (150-400)
[2016-05-08 04:50] LABS: LYMPHOCYTES 11 %; LYMPHOCYTES ABSOLUTE (CALC) 0.85 10/3/uL (0.67-4.30); MONOCYTES 11 %; MONOCYTES ABSOLUTE (CALC) 0.85 10/3/uL (0.21-1.20); NEUTROPHILS ABSOLUTE (CALC) 6.01 10/3/uL (2.02-8.40); SEGMENTED NEUTROPHIL (0) 78 %; TOTAL NUCLEATED CELLS 100
[2016-05-08 04:51] LABS: ANISOCYTOSIS 1+ (5-10/OIF) (0-5/OIF); OVALOCYTES 1+ (3-10/OIF) (0-2/OIF)
[2016-05-08 04:52] LABS: A/G RATIO 1.2 (0.7-1.9); ALBUMIN 2.8 G/DL (3.5-5.0); ALKALINE PHOSPHATASE 112 U/L (45-117); CALCIUM, SERUM 8.1 MG/DL (8.5-10.4); CHLORIDE, SERUM 103 MMOL/L (96-112); CO2 (CARBON DIOXIDE) 19 MMOL/L (24-34); CREATININE 2.81 MG/DL (0.70-1.30); GFR AFRICAN AMERICAN 25 ML/MIN (>=60); GFR NON AFRICAN AMERICAN 21 ML/MIN (>=60); GLOBULIN 2.4 G/DL (2.5-4.1); GLUCOSE, SERUM 115 MG/DL (60-99); INDIRECT BILIRUBIN(NOT ORDER) 1.1 MG/DL (0.1-0.9); POTASSIUM, SERUM 4.3 MMOL/L (3.5-5.3); SGOT(AST) 2040 U/L (5-40); SGPT(ALT) 2079 U/L (5-65); SODIUM, SERUM 139 MMOL/L (135-148); TOTAL BILIRUBIN 3.1 MG/DL (0-1.2); TOTAL PROTEIN 5.2 G/DL (6.0-8.5)
[2016-05-08 04:59] LABS: BUN (BLOOD UREA NITROGEN) 73 MG/DL (6-23); PHOSPHORUS, SERUM 4.6 MG/DL (2.5-4.5)
[2016-05-09 04:27] LABS: BASOPHILS 0.1 %; BASOPHILS ABSOLUTE 0.01 10/3/uL (0.0-0.16); EOSINOPHILS 0.2 %; EOSINOPHILS ABSOLUTE 0.02 10/3/uL (0.0-0.53); HEMATOCRIT 36.8 % (40.0-51.0); IMMATURE GRANULOCYTES 0.6 %; IMMATURE GRANULOCYTES ABSOLUTE 0.05 10/3/uL (0.0-0.11); LYMPHOCYTES 8.5 %; LYMPHOCYTES ABSOLUTE 0.76 10/3/uL (0.67-4.30); MEAN CORPUS HGB CONC 32.6 g/dL (32.0-36.0); MEAN CORPUSCULAR HEMOGLOB 28.6 pg (26.0-34.0); MEAN CORPUSCULAR VOLUME 87.6 fL (80-100); MONOCYTES 11.9 %; MONOCYTES ABSOLUTE 1.06 10/3/uL (0.21-1.20); NEUTROPHILS 78.7 %; NUCLEATED RED BLOOD CELLS 2.3 /100WBC (0-0); RBC DISTRIBUTION WIDTH 17.5 % (12.0-16.0); WHITE BLOOD CELLS 8.9 10/3/uL (4.5-10.5)
[2016-05-09 04:28] LABS: MANUAL DIFF NO %; PLATELET COUNT 40 10/3/uL (150-400)
[2016-05-09 04:31] LABS: PROTIME (NOT ORD) 38.7 SEC (12.0-14.5)
[2016-05-09 04:47] LABS: A/G RATIO 1.2 (0.7-1.9); ALBUMIN 2.8 G/DL (3.5-5.0); ALKALINE PHOSPHATASE 110 U/L (45-117); CALCIUM, SERUM 7.9 MG/DL (8.5-10.4); CHLORIDE, SERUM 102 MMOL/L (96-112); CO2 (CARBON DIOXIDE) 20 MMOL/L (24-34); GLOBULIN 2.4 G/DL (2.5-4.1); INDIRECT BILIRUBIN(NOT ORDER) 1.2 MG/DL (0.1-0.9); PHOSPHORUS, SERUM 4.7 MG/DL (2.5-4.5); POTASSIUM, SERUM 4.5 MMOL/L (3.5-5.3); SGOT(AST) 1013 U/L (5-40); SGPT(ALT) 1630 U/L (5-65); SODIUM, SERUM 137 MMOL/L (135-148); TOTAL BILIRUBIN 3.5 MG/DL (0-1.2); TOTAL PROTEIN 5.2 G/DL (6.0-8.5)
[2016-05-09 04:49] LABS: ANISOCYTOSIS 1+ (5-10/OIF) (0-5/OIF); BUN (BLOOD UREA NITROGEN) 85 MG/DL (6-23); CREATININE 3.33 MG/DL (0.70-1.30); DIRECT BILIRUBIN 2.3 MG/DL (0.0-0.4); GFR AFRICAN AMERICAN 20 ML/MIN (>=60); GFR NON AFRICAN AMERICAN 17 ML/MIN (>=60); GLUCOSE, SERUM 90 MG/DL (60-99); OVALOCYTES 1+ (3-10/OIF) (0-2/OIF)
[2016-05-09 04:50] LABS: ACANTHOCYTES OCC (0-2/OIF); BURR CELLS 1+ (3-10/OIF) (0-2/OIF); RBC MORPHOLOGY ABN (NORMAL); TEARDROP SHAPED RBCS OCC (0-2/OIF)
[2016-05-09 05:20] LABS: PROCALCITONIN 1.22 ng/mL (<0.5)
[2016-05-09 10:33] LABS: ASCORBIC ACID (UR NOT ORDER) NEG (NEG); BILIRUBIN, URINE NEGATIVE (NEG); KETONE, URINE TRACE MG/DL (NEG); LEUKOCYTE ESTERASE(NOT OR TRACE (NEG); WBC (NOT ORDERED) (RFLEX) 9 (0-5)
[2016-05-09 18:08] LABS: CALCIUM, SERUM 7.8 MG/DL (8.5-10.4); CHLORIDE, SERUM 102 MMOL/L (96-112); CO2 (CARBON DIOXIDE) 19 MMOL/L (24-34); CREATININE 3.51 MG/DL (0.70-1.30); GFR AFRICAN AMERICAN 19 ML/MIN (>=60); GFR NON AFRICAN AMERICAN 16 ML/MIN (>=60); GLUCOSE, SERUM 108 MG/DL (60-99); POTASSIUM, SERUM 4.6 MMOL/L (3.5-5.3); SODIUM, SERUM 135 MMOL/L (135-148)
[2016-05-09 18:11] LABS: BUN (BLOOD UREA NITROGEN) 89 MG/DL (6-23)
[2016-05-10 04:28] LABS: BASOPHILS 0.2 %; BASOPHILS ABSOLUTE 0.01 10/3/uL (0.0-0.16); EOSINOPHILS 1.1 %; EOSINOPHILS ABSOLUTE 0.07 10/3/uL (0.0-0.53); IMMATURE GRANULOCYTES 0.5 %; IMMATURE GRANULOCYTES ABSOLUTE 0.03 10/3/uL (0.0-0.11); MEAN CORPUS HGB CONC 33.3 g/dL (32.0-36.0); MEAN CORPUSCULAR HEMOGLOB 29.1 pg (26.0-34.0); MEAN CORPUSCULAR VOLUME 87.4 fL (80-100); MONOCYTES 8.9 %; MONOCYTES ABSOLUTE 0.59 10/3/uL (0.21-1.20); NEUTROPHILS 80.3 %; NEUTROPHILS ABSOLUTE 5.35 10/3/uL (2.02-8.40); RBC DISTRIBUTION WIDTH 17.8 % (12.0-16.0); RED CELL COUNT 4.12 10/6/uL (4.7-6.1); WHITE BLOOD CELLS 6.7 10/3/uL (4.5-10.5)
[2016-05-10 04:29] LABS: MANUAL DIFF NO %; PLATELET COUNT 34 10/3/uL (150-400)
[2016-05-10 04:33] LABS: INTERNATIONAL NORMAL RATI 2.9 UNITS (-)
[2016-05-10 04:50] LABS: A/G RATIO 1.3 (0.7-1.9); ALBUMIN 2.7 G/DL (3.5-5.0); ALKALINE PHOSPHATASE 106 U/L (45-117); BUN (BLOOD UREA NITROGEN) 91 MG/DL (6-23); CALCIUM, SERUM 7.7 MG/DL (8.5-10.4); CHLORIDE, SERUM 102 MMOL/L (96-112); CO2 (CARBON DIOXIDE) 17 MMOL/L (24-34); CREATININE 3.33 MG/DL (0.70-1.30); DIGOXIN 1.9 NG/ML (0.8-2.0); GFR AFRICAN AMERICAN 20 ML/MIN (>=60); GFR NON AFRICAN AMERICAN 17 ML/MIN (>=60); GLOBULIN 2.1 G/DL (2.5-4.1); GLUCOSE, SERUM 77 MG/DL (60-99); INDIRECT BILIRUBIN(NOT ORDER) 1.2 MG/DL (0.1-0.9); POTASSIUM, SERUM 4.1 MMOL/L (3.5-5.3); SGOT(AST) 559 U/L (5-40); SGPT(ALT) 1221 U/L (5-65); SODIUM, SERUM 135 MMOL/L (135-148); TOTAL BILIRUBIN 3.2 MG/DL (0-1.2); TOTAL PROTEIN 4.8 G/DL (6.0-8.5)
[2016-05-10 05:02] LABS: ANISOCYTOSIS 1+ (5-10/OIF) (0-5/OIF)
[2016-05-10 13:40] LABS: POTASSIUM, SERUM 3.8 MMOL/L (3.5-5.3)
[2016-05-11 05:33] LABS: HEMATOCRIT 36.7 % (40.0-51.0); HEMOGLOBIN 12.3 g/dL (13.6-17.8); MEAN CORPUS HGB CONC 33.5 g/dL (32.0-36.0); MEAN CORPUSCULAR HEMOGLOB 28.7 pg (26.0-34.0); MEAN CORPUSCULAR VOLUME 85.7 fL (80-100); NUCLEATED RED BLOOD CELLS 0.8 /100WBC (0-0); RBC DISTRIBUTION WIDTH 18.3 % (12.0-16.0); RED CELL COUNT 4.28 10/6/uL (4.7-6.1); WHITE BLOOD CELLS 6.6 10/3/uL (4.5-10.5)
[2016-05-11 05:35] LABS: PLATELET COUNT 41 10/3/uL (150-400)
[2016-05-11 05:36] LABS: MANUAL DIFF YES %
[2016-05-11 05:55] LABS: ALBUMIN 2.7 G/DL (3.5-5.0); CALCIUM, SERUM 8.4 MG/DL (8.5-10.4); CHLORIDE, SERUM 104 MMOL/L (96-112); CREATININE 3.05 MG/DL (0.70-1.30); FREE T4 1.52 NG/DL (0.76-1.46); GFR AFRICAN AMERICAN 22 ML/MIN (>=60); GFR NON AFRICAN AMERICAN 19 ML/MIN (>=60); GLUCOSE, SERUM 88 MG/DL (60-99); PHOSPHORUS, SERUM 4.3 MG/DL (2.5-4.5); POTASSIUM, SERUM 3.4 MMOL/L (3.5-5.3); SODIUM, SERUM 139 MMOL/L (135-148)
[2016-05-11 05:56] LABS: ANISOCYTOSIS 1+ (5-10/OIF) (0-5/OIF); BAND NEUTROPHILS 2 %; BASOPHILS 1 %; BASOPHILS ABSOLUTE (CALC) 0.07 10/3/uL (0.0-0.16); BURR CELLS 1+ (3-10/OIF) (0-2/OIF); EOSINOPHILS 1 %; EOSINOPHILS ABSOLUTE (CALC) 0.07 10/3/uL (0.0-0.53); LYMPHOCYTES 4 %; LYMPHOCYTES ABSOLUTE (CALC) 0.26 10/3/uL (0.67-4.30); MONOCYTES 5 %; MONOCYTES ABSOLUTE (CALC) 0.33 10/3/uL (0.21-1.20); NEUTROPHILS ABSOLUTE (CALC) 5.87 10/3/uL (2.02-8.40); OVALOCYTES 1+ (3-10/OIF) (0-2/OIF); PLATELET ESTIMATE DEC (ADEQUATE); POIKILOCYTOSIS 1+ (5-10/OIF) (0-5/OIF); SEGMENTED NEUTROPHIL (0) 87 %; TEARDROP SHAPED RBCS OCC (0-2/OIF); TOTAL NUCLEATED CELLS 100
[2016-05-11 06:02] LABS: BUN (BLOOD UREA NITROGEN) 85 MG/DL (6-23); CO2 (CARBON DIOXIDE) 21 MMOL/L (24-34)
[2016-05-12 07:15] LABS: BASOPHILS 0.7 %; BASOPHILS ABSOLUTE 0.03 10/3/uL (0.0-0.16); EOSINOPHILS 1.4 %; EOSINOPHILS ABSOLUTE 0.06 10/3/uL (0.0-0.53); HEMATOCRIT 36.7 % (40.0-51.0); HEMOGLOBIN 12.3 g/dL (13.6-17.8); IMMATURE GRANULOCYTES 0.2 %; IMMATURE GRANULOCYTES ABSOLUTE 0.01 10/3/uL (0.0-0.11); LYMPHOCYTES 17.6 %; LYMPHOCYTES ABSOLUTE 0.73 10/3/uL (0.67-4.30); MEAN CORPUS HGB CONC 33.5 g/dL (32.0-36.0); MEAN CORPUSCULAR HEMOGLOB 28.8 pg (26.0-34.0); MEAN CORPUSCULAR VOLUME 85.9 fL (80-100); MONOCYTES 15.7 %; MONOCYTES ABSOLUTE 0.65 10/3/uL (0.21-1.20); NEUTROPHILS 64.4 %; NEUTROPHILS ABSOLUTE 2.67 10/3/uL (2.02-8.40); RBC DISTRIBUTION WIDTH 19.2 % (12.0-16.0); RED CELL COUNT 4.27 10/6/uL (4.7-6.1); WHITE BLOOD CELLS 4.2 10/3/uL (4.5-10.5)
[2016-05-12 07:16] LABS: MANUAL DIFF NO %; PLATELET COUNT 39 10/3/uL (150-400)
[2016-05-12 07:38] LABS: ALBUMIN 2.7 G/DL (3.5-5.0); ALKALINE PHOSPHATASE 110 U/L (45-117); BUN (BLOOD UREA NITROGEN) 82 MG/DL (6-23); CALCIUM, SERUM 8.1 MG/DL (8.5-10.4); CHLORIDE, SERUM 103 MMOL/L (96-112); CO2 (CARBON DIOXIDE) 25 MMOL/L (24-34); CREATININE 2.73 MG/DL (0.70-1.30); DIRECT BILIRUBIN 1.9 MG/DL (0.0-0.4); FERRITIN 568 NG/ML (26-388); GFR AFRICAN AMERICAN 26 ML/MIN (>=60); GFR NON AFRICAN AMERICAN 22 ML/MIN (>=60); GLUCOSE, SERUM 99 MG/DL (60-99); INDIRECT BILIRUBIN(NOT ORDER) 1.1 MG/DL (0.1-0.9); INTERNATIONAL NORMAL RATI 1.9 UNITS (-); PARTIAL THROMBO TIME 32.7 SEC (22.5-37.2); PHOSPHORUS, SERUM 3.7 MG/DL (2.5-4.5); POTASSIUM, SERUM 3.5 MMOL/L (3.5-5.3); SGOT(AST) 242 U/L (5-40); SGPT(ALT) 789 U/L (5-65); SODIUM, SERUM 139 MMOL/L (135-148); TOTAL PROTEIN 5.3 G/DL (6.0-8.5)
[2016-05-12 07:39] LABS: GLOBULIN 2.6 G/DL (2.5-4.1); TROPONIN I 0.28 NG/ML (<0.05)
[2016-05-12 07:46] LABS: FIBRINOGEN 181 MG/DL (230-462)
[2016-05-12 07:51] LABS: PROTIME (NOT ORD) 21.5 SEC (12.0-14.5)
[2016-05-12 08:17] LABS: ANISOCYTOSIS 1+ (5-10/OIF) (0-5/OIF)
[2016-05-12 08:19] LABS: BURR CELLS 1+ (3-10/OIF) (0-2/OIF); OVALOCYTES 1+ (3-10/OIF) (0-2/OIF); POIKILOCYTOSIS 1+ (5-10/OIF) (0-5/OIF)
[2016-05-13 05:41] LABS: BASOPHILS 0.5 %; BASOPHILS ABSOLUTE 0.03 10/3/uL (0.0-0.16); EOSINOPHILS 0.6 %; EOSINOPHILS ABSOLUTE 0.04 10/3/uL (0.0-0.53); HEMOGLOBIN 13.6 g/dL (13.6-17.8); IMMATURE GRANULOCYTES 0.6 %; IMMATURE GRANULOCYTES ABSOLUTE 0.04 10/3/uL (0.0-0.11); LYMPHOCYTES ABSOLUTE 0.93 10/3/uL (0.67-4.30); MEAN CORPUS HGB CONC 32.3 g/dL (32.0-36.0); MEAN CORPUSCULAR HEMOGLOB 28.9 pg (26.0-34.0); MONOCYTES 10.8 %; MONOCYTES ABSOLUTE 0.72 10/3/uL (0.21-1.20); NEUTROPHILS 73.5 %; NEUTROPHILS ABSOLUTE 4.88 10/3/uL (2.02-8.40); RBC DISTRIBUTION WIDTH 19.7 % (12.0-16.0); RED CELL COUNT 4.71 10/6/uL (4.7-6.1)
[2016-05-13 05:47] LABS: INTERNATIONAL NORMAL RATI 1.8 UNITS (-); PARTIAL THROMBO TIME 33.4 SEC (22.5-37.2); PROTIME (NOT ORD) 20.9 SEC (12.0-14.5)
[2016-05-13 05:49] LABS: HEMATOCRIT 42.1 % (40.0-51.0); MANUAL DIFF NO %; MEAN CORPUSCULAR VOLUME 89.4 fL (80-100); PLATELET COUNT 56 10/3/uL (150-400); WHITE BLOOD CELLS 6.6 10/3/uL (4.5-10.5)
[2016-05-13 07:00] LABS: PLATELET ESTIMATE DEC (ADEQUATE)
[2016-05-13 07:01] LABS: ANISOCYTOSIS 1+ (5-10/OIF) (0-5/OIF)
[2016-05-13 07:03] LABS: DIRECT BILIRUBIN 1.9 MG/DL (0.0-0.4); POTASSIUM, SERUM 4.2 MMOL/L (3.5-5.3); SGOT(AST) 182 U/L (5-40); SODIUM, SERUM 138 MMOL/L (135-148)
[2016-05-13 07:18] LABS: A/G RATIO 1.1 (0.7-1.9); ALBUMIN 2.8 G/DL (3.5-5.0); ALKALINE PHOSPHATASE 108 U/L (45-117); BUN (BLOOD UREA NITROGEN) 83 MG/DL (6-23); CALCIUM, SERUM 8.4 MG/DL (8.5-10.4); CHLORIDE, SERUM 101 MMOL/L (96-112); CO2 (CARBON DIOXIDE) 23 MMOL/L (24-34); CREATININE 2.68 MG/DL (0.70-1.30); GFR AFRICAN AMERICAN 26 ML/MIN (>=60); GFR NON AFRICAN AMERICAN 23 ML/MIN (>=60); GLOBULIN 2.6 G/DL (2.5-4.1); GLUCOSE, SERUM 105 MG/DL (60-99); SGPT(ALT) 651 U/L (5-65); TOTAL BILIRUBIN 2.9 MG/DL (0-1.2); TOTAL PROTEIN 5.4 G/DL (6.0-8.5)
[2016-05-14 07:55] LABS: HEMATOCRIT 41.6 % (40.0-51.0); HEMOGLOBIN 13.4 g/dL (13.6-17.8); MANUAL DIFF YES %; MEAN CORPUS HGB CONC 32.2 g/dL (32.0-36.0); MEAN CORPUSCULAR HEMOGLOB 28.9 pg (26.0-34.0); MEAN CORPUSCULAR VOLUME 89.7 fL (80-100); NUCLEATED RED BLOOD CELLS 0.8 /100WBC (0-0); PLATELET COUNT 68 10/3/uL (150-400); RBC DISTRIBUTION WIDTH 19.8 % (12.0-16.0); RED CELL COUNT 4.64 10/6/uL (4.7-6.1); WHITE BLOOD CELLS 8.1 10/3/uL (4.5-10.5)
[2016-05-14 07:57] LABS: INTERNATIONAL NORMAL RATI 2.1 UNITS (-); PROTIME (NOT ORD) 23.3 SEC (12.0-14.5)
[2016-05-14 08:03] LABS: ALBUMIN 2.8 G/DL (3.5-5.0); TOTAL PROTEIN 5.6 G/DL (6.0-8.5)
[2016-05-14 08:04] LABS: DIRECT BILIRUBIN 2.4 MG/DL (0.0-0.4); INDIRECT BILIRUBIN(NOT ORDER) 1.2 MG/DL (0.1-0.9); TOTAL BILIRUBIN 3.6 MG/DL (0-1.2)
[2016-05-14 08:10] LABS: ANISOCYTOSIS 1+ (5-10/OIF) (0-5/OIF); LYMPHOCYTES 2 %; LYMPHOCYTES ABSOLUTE (CALC) 0.16 10/3/uL (0.67-4.30); MONOCYTES 3 %; MONOCYTES ABSOLUTE (CALC) 0.24 10/3/uL (0.21-1.20); OVALOCYTES 1+ (3-10/OIF) (0-2/OIF); PLATELET ESTIMATE DEC (ADEQUATE); SEGMENTED NEUTROPHIL (0) 95 %; TOTAL NUCLEATED CELLS 100
[2016-05-15 07:39] LABS: HEMATOCRIT 45.4 % (40.0-51.0); HEMOGLOBIN 14.2 g/dL (13.6-17.8); INTERNATIONAL NORMAL RATI 2.4 UNITS (-); MEAN CORPUS HGB CONC 31.3 g/dL (32.0-36.0); MEAN CORPUSCULAR HEMOGLOB 28.5 pg (26.0-34.0); MEAN CORPUSCULAR VOLUME 91.2 fL (80-100); MEAN PLATELET VOLUME 12.8 fL (9.2-13.0); NUCLEATED RED BLOOD CELLS 0.9 /100WBC (0-0); PROTIME (NOT ORD) 25.7 SEC (12.0-14.5); RED CELL COUNT 4.98 10/6/uL (4.7-6.1); WHITE BLOOD CELLS 8.3 10/3/uL (4.5-10.5)
[2016-05-15 07:41] LABS: MANUAL DIFF YES %; PLATELET COUNT 97 10/3/uL (150-400)
[2016-05-15 07:58] LABS: A/G RATIO 1.1 (0.7-1.9); ALBUMIN 3.3 G/DL (3.5-5.0); ALKALINE PHOSPHATASE 116 U/L (45-117); BUN (BLOOD UREA NITROGEN) 112 MG/DL (6-23); CALCIUM, SERUM 8.1 MG/DL (8.5-10.4); CHLORIDE, SERUM 92 MMOL/L (96-112); CO2 (CARBON DIOXIDE) 17 MMOL/L (24-34); CREATININE 4.15 MG/DL (0.70-1.30); DIRECT BILIRUBIN 2.8 MG/DL (0.0-0.4); GFR AFRICAN AMERICAN 15 ML/MIN (>=60); GFR NON AFRICAN AMERICAN 13 ML/MIN (>=60); GLUCOSE, SERUM 58 MG/DL (60-99); INDIRECT BILIRUBIN(NOT ORDER) 1.1 MG/DL (0.1-0.9); PHOSPHORUS, SERUM 8.8 MG/DL (2.5-4.5); POTASSIUM, SERUM 5.8 MMOL/L (3.5-5.3); SGOT(AST) 164 U/L (5-40); SGPT(ALT) 541 U/L (5-65); SODIUM, SERUM 134 MMOL/L (135-148); TOTAL BILIRUBIN 3.9 MG/DL (0-1.2); TOTAL PROTEIN 6.3 G/DL (6.0-8.5)
[2016-05-15 08:08] LABS: ANISOCYTOSIS 1+ (5-10/OIF) (0-5/OIF); BAND NEUTROPHILS 1 %; LYMPHOCYTES 11 %; LYMPHOCYTES ABSOLUTE (CALC) 0.91 10/3/uL (0.67-4.30); MONOCYTES 5 %; MONOCYTES ABSOLUTE (CALC) 0.42 10/3/uL (0.21-1.20); NEUTROPHILS ABSOLUTE (CALC) 6.97 10/3/uL (2.02-8.40); PLATELET ESTIMATE DEC (ADEQUATE); SEGMENTED NEUTROPHIL (0) 83 %; TOTAL NUCLEATED CELLS 100
[2016-05-15 08:09] LABS: POLYCHROMASIA 1+ (2-5/OIF) (0-1/OIF); TOXIC GRANULATION 1+
[2016-05-15 08:10] LABS: POIKILOCYTOSIS 1+ (5-10/OIF) (0-5/OIF)
[2016-05-15 12:12] LABS: ALLENS TEST Pos; BE (BASE EXCESS) -14.6 MEQ/L (0 +/- 2.5); DEVICE NC; HEMOBLOGIN CONTENT 13.7 G/DL (14-18); INSTRUMENT SERIAL # 8083; METHEMOGLOBIN 0.5 % (0-3); O2 CONTENT 17.8 VOL% (18-24); PCO2 (CO2 TENSION) 31 MMHG (35-45); PO2 (O2 TENSION) 84 MMHG (79-93); SAMPLE Arterial; pH 7.21 (7.37-7.43)
[2016-05-16 07:08] LABS: INTERNATIONAL NORMAL RATI 2.7 UNITS (-); PROTIME (NOT ORD) 28.5 SEC (12.0-14.5)
[2016-05-16 07:19] LABS: ALBUMIN 2.8 G/DL (3.5-5.0); TOTAL PROTEIN 5.3 G/DL (6.0-8.5)
[2016-05-16 07:20] LABS: BASOPHILS 0 %; EOSINOPHILS 0 %; HEMOGLOBIN 12.5 g/dL (13.6-17.8); IMMATURE GRANULOCYTES 0.4 %; IMMATURE GRANULOCYTES ABSOLUTE 0.03 10/3/uL (0.0-0.11); INDIRECT BILIRUBIN(NOT ORDER) 1.2 MG/DL (0.1-0.9); LYMPHOCYTES 5.4 %; LYMPHOCYTES ABSOLUTE 0.44 10/3/uL (0.67-4.30); MEAN CORPUS HGB CONC 32.7 g/dL (32.0-36.0); MEAN CORPUSCULAR HEMOGLOB 28.5 pg (26.0-34.0); MONOCYTES 8.7 %; MONOCYTES ABSOLUTE 0.71 10/3/uL (0.21-1.20); NEUTROPHILS 85.5 %; NEUTROPHILS ABSOLUTE 6.98 10/3/uL (2.02-8.40); NUCLEATED RED BLOOD CELLS 0.9 /100WBC (0-0); RBC DISTRIBUTION WIDTH 19.4 % (12.0-16.0); RED CELL COUNT 4.39 10/6/uL (4.7-6.1); TOTAL BILIRUBIN 3.2 MG/DL (0-1.2); WHITE BLOOD CELLS 8.2 10/3/uL (4.5-10.5)
[2016-05-16 07:23] LABS: HEMATOCRIT 38.2 % (40.0-51.0); MANUAL DIFF NO %; PLATELET COUNT 63 10/3/uL (150-400)
[2016-05-16 07:59] LABS: ANISOCYTOSIS 1+ (5-10/OIF) (0-5/OIF); PLATELET ESTIMATE DEC (ADEQUATE)
== END 2016-05-17 19:02 | disposition hospice, inpatient (51) | DRG 273 ==
LOC: ER 10:38 → CDU1 13:58 → CDU2 14:21 → 6NO 16:59 → ER/OF 18:42 → 5NO 19:46 → SSU1 04-29 12:52 → 5NO 05-01 10:32 → CCU 05-04 10:52 → 7NO 05-10 19:50
PROVIDERS: Anesthesiology; Emergency Medicine; Hospitalist; Internal Medicine; Internal Medicine Cardiovascular Disease; Internal Medicine Critical Care Medicine; Internal Medicine Nephrology; Nurse Practitioner Family
PROC: 4A023N7 Measurement of Cardiac Sampling and Pressure, Left Heart, Percutaneous Approach (ICD-10-PCS; principal; 2016-04-22)
PROC: B2111ZZ Fluoroscopy of Multiple Coronary Arteries using Low Osmolar Contrast (ICD-10-PCS; 2016-04-22)
PROC: B2151ZZ Fluoroscopy of Left Heart using Low Osmolar Contrast (ICD-10-PCS; 2016-04-22)
PROC: 027F3ZZ Dilation of Aortic Valve, Percutaneous Approach (ICD-10-PCS; 2016-04-29)
PROC: 02HV33Z Insertion of Infusion Device into Superior Vena Cava, Percutaneous Approach (ICD-10-PCS; 2016-05-04)
PROC: 4A02X4A Measurement of Cardiac Electrical Activity, Guidance, External Approach (ICD-10-PCS; 2016-05-04)
PROC: 30233K1 Transfusion of Nonautologous Frozen Plasma into Peripheral Vein, Percutaneous Approach (ICD-10-PCS; 2016-05-05)
DX: I48.0 Paroxysmal atrial fibrillation (principal); I50.23 Acute on chronic systolic (congestive) heart failure; J96.21 Acute and chronic respiratory failure with hypoxia; D65 Disseminated intravascular coagulation [defibrination syndrome]; K72.00 Acute and subacute hepatic failure without coma; R57.0 Cardiogenic shock; I82.0 Budd-Chiari syndrome; N17.9 Acute kidney failure, unspecified; J44.1 Chronic obstructive pulmonary disease with (acute) exacerbation; K81.0 Acute cholecystitis; N18.3 Chronic kidney disease, stage 3 (moderate); I42.8 Other cardiomyopathies; I25.10 Atherosclerotic heart disease of native coronary artery without angina pectoris; I48.2 Chronic atrial fibrillation; Z51.5 Encounter for palliative care; F41.9 Anxiety disorder, unspecified; Z88.0 Allergy status to penicillin; K21.9 Gastro-esophageal reflux disease without esophagitis; E03.9 Hypothyroidism, unspecified; G62.9 Polyneuropathy, unspecified; E87.6 Hypokalemia; R53.81 Other malaise; G47.33 Obstructive sleep apnea (adult) (pediatric); I65.29 Occlusion and stenosis of unspecified carotid artery; I08.0 Rheumatic disorders of both mitral and aortic valves
CPT/HCPCS: 36415; 36430; 36569; 36600; 70450; 71010; 71020; 71250; 74000; 76705; 80048; 80053; 80061; 80069; 80074; 80076; 80162; 80202; 81001; 82140; 82150; 82248; 82533; 82570; 82728; 82803; 82805; 82947; 82962; 83036; 83605; 83690; 83735; 83880; 84100; 84132; 84145; 84300; 84439; 84443; 84484; 85025; 85347; 85384; 85610; 85730; 86850; 86900; 86901; 87040; 87070; 87077; 87186; 87205; 87641; 90670; 92986; 93005; 93306; 93460; 93970; 93971; 94640; 96374; 96375; 97110-GP; 97161-GP; 97164-GP; 97165-GO; 97530-GP; 99152; 99153; 99285; A9270-GY; C1725; C1751; C1760; C1769; C1887; C1894; G0009; G0463; G8978-CJ-GP; G8978-CN-GP; G8979-CJ-GP; G8979-CM-GP; G8980-CJ-GP; J0282; J0692; J1160; J1200; J1610; J1940; J1956; J2250; J2370; J2405; J2550; J2920; J2930; J3010; J3370; J3430; P9045; P9059; Q9967

== ENCOUNTER 2016-05-17 19:12 | Inpatient (IN) | payer OTHER ==
--- NOTE | ~2016-05-17 | HP ---
History And Physical [id number] [place]. [address] NAME: ART MCAIAS : 42 STATUS : ADM IN [facility]#: [id number] AGE: 75 ADM/REG DATE : 05/17/16 MR#: [id number] REPORT SERV DATE: 05/18/16 DICTATED BY: JAE RASCON DATE: 05/18/16 REPORT STATUS : Draft TRANSCRIBED BY: MODL DATE: 05/18/16 DATE OF ADMISSION: 05/17/2016 HISTORY OF PRESENT ILLNESS: Mr. Macias is a 75-year-old white male, being admitted to hospice for end-stage congestive heart failure with multiorgan failure. He was recently hospitalized for a CHF exacerbation, shortness of breath, renal dysfunction that has just continued to worsen to the point now where renal function is imminent. Mental status is declined to the point where he has a baseline GCS of 3 to 4, confusion, not eating, not drinking, going through what the specialists are calling multiorgan system failure. PAST MEDICAL HISTORY: Significant for renal dysfunction, congestive heart failure, COPD, diabetes, reflux disease, multitude of electrolyte abnormalities, anxiety disorder, chronic pain, hypertension, recurrent angina, hypercholesterolemia, atrial fibrillation. PAST SURGICAL HISTORY: Unknown. CURRENT MEDICATIONS: Please see MAR. ALLERGIES: SEE MAR. FAMILY HISTORY: Noncontributory. REVIEW OF SYSTEMS: Unable to obtain secondary to the patient's condition. PHYSICAL EXAMINATION: VITAL SIGNS: Per chart. GENERAL: Ill-appearing white male, having agonal respirations. HEENT: Dry mucous membranes. Pupils are reactive. Positive corneal reflex. NECK: Supple. Positive JVD, sitting at a 45-degree angle. Negative lymphadenopathy. Normal thyroid. CARDIOVASCULAR: Irregularly irregular, rate of 120. No murmurs, gallops, or rubs. PULMONARY: Agonal respirations with bilateral crackles and rhonchi. ABDOMEN: Soft, nontender, nondistended. No hepatosplenomegaly. EXTREMITIES: Show no clubbing, cyanosis, or edema. NEUROLOGICAL: Cranial nerves 2 through 12 grossly intact, although I cannot get him to cooperate with an exam. GCS of 3 to 5. SKIN: No breakdowns. No rash. LYMPH: No palpable supraclavicular or anterior cervical lymphadenopathy. ASSESSMENT: 1. End-stage congestive heart failure. 2. Multiorgan system failure. 3. Renal failure. PLAN: At this point in time, expectant management, the patient is active. History And Physical [address] [place]. [address] NAME: ART MACIAS : 42 STATUS : ADM IN [facility]#: [id number] AGE: 75 ADM/REG DATE : 05/17/16 MR#: [id number] REPORT SERV DATE: 05/18/16 DICTATED BY: JAE RASCON DATE: 05/18/16 REPORT STATUS : Draft TRANSCRIBED BY: MODUgo DATE: 05/18/16 DENG/VALARIE Jae Rascon MD / [id number] CC: Jae Rascon MD
--- NOTE | ~2016-05-17 | DS ---
Discharge Summary [id number] [place]. [address] NAME: ART BURRIS : 44 STATUS : DIS IN PAT#: [id number] AGE: 75 ADM/REG DATE : 05/17/16 MR#: [id number] REPORT SERV DATE: 06/05/16 DICTATED BY: JAE RASCON DATE: 06/04/16 REPORT STATUS : Draft TRANSCRIBED BY: MODL DATE: 06/04/16 ADMISSION DATE: 05/17/2016 DISCHARGE DATE: 05/18/2016 SUMMARY HISTORY OF PRESENT ILLNESS: This was a 75-year-old gentleman, admitted to hospice with end- stage congestive heart failure, multiorgan system failure who came in with a baseline GCS of 3-4, confusion, disorientation, not eating, not drinking, and going through system shut down at this point in time. He was admitted to the service on 05/17/2016 and passed on 05/18/2016. The patient passed in his sleep without any pain. Family was notified. DENG/VALARIE Jae Rascon MD / [id number] CC: Jae Rascon MD
[~2016-05-17 19:12] MED LIST changes: +BUM1 PO; +BUSPIRONE7.5 MG PO; +CIMETIDINE400 MG PO; +LEXAPRO5 MG PO
== END 2016-05-18 18:50 | disposition expired | DRG 291 ==
LOC: 7NO 19:12
DX: I50.23 Acute on chronic systolic (congestive) heart failure (principal); J96.21 Acute and chronic respiratory failure with hypoxia; D65 Disseminated intravascular coagulation [defibrination syndrome]; K72.00 Acute and subacute hepatic failure without coma; N17.9 Acute kidney failure, unspecified; J44.1 Chronic obstructive pulmonary disease with (acute) exacerbation; Z51.5 Encounter for palliative care; R57.0 Cardiogenic shock; N18.3 Chronic kidney disease, stage 3 (moderate); I25.10 Atherosclerotic heart disease of native coronary artery without angina pectoris; I48.2 Chronic atrial fibrillation; K21.9 Gastro-esophageal reflux disease without esophagitis; E03.9 Hypothyroidism, unspecified; E87.6 Hypokalemia
CPT/HCPCS: 94640; A9270-GY